=== PATIENT | male | born 1955 | race Caucasian/White ===

== ENCOUNTER → 2017-08-04 17:11 | Outpatient (CLI) | payer BC, SELFPAY ==
[2017-08-04 18:27] LABS: Alanine Aminotransferase 52 IU/L (21-72); Albumin 4.8 g/dL (3.5-5.0); Albumin Globulin Ratio 1.4 (1.0-2.8); Alkaline Phosphatase 61 U/L (38-126); Aspartate Aminotransferase 47 IU/L (17-59); BUN Creatinine Ratio 25.8 (6-22); Bilirubin Total 0.9 mg/dL (0.2-1.3); Calcium 9.6 mg/dL (8.4-10.2); Estimated Glomerular Filt Rate > 60.0 mL/min (>60); Globulin 3.4 g/dL (1.7-4.1); Glucose 96 mg/dL (80-110); HEMOLYSIS < 15 (0-50); Potassium 4.7 mmol/L (3.4-5.1); Sodium 142 mmol/L (137-145); Total Protein 8.2 g/dL (6.3-8.2)
[2017-08-04 18:32] LABS: Add Manual Diff / Slide Review NO; Basophils Percent Auto 1.1 % (0-2); Eosinophils Percent Auto 3.6 % (2-4); Hematocrit 46.9 % (41-53); Hemoglobin 16.2 g/dL (13.5-17.5); Lymphocytes Percent Auto 21.8 % (25-40); Mean Corpuscular HGB Conc 34.5 % (30-36); Mean Corpuscular Hemoglobin 31.5 PG (26-34); Mean Corpuscular Volume 91.2 fL (80-100); Monocytes Percent Auto 12.1 % (3-14); Neutrophils Absolute Auto 3500 /uL (3000-5900); Neutrophils Percent Auto 61.4 % (50-75); Platelet Count 184 X10^3/uL (150-400); Red Blood Cell Count 5.14 X10^6/uL (4.5-5.9); Red Cell Distribution Width 12.6 % (11.6-14.8); White Blood Cell Count 5.7 X10^3/uL (4.5-11.0)
== END ==
PROVIDERS: PCP Family Medicine; Visit Provider Psychiatry & Neurology Neurology
DX: T88.7XXA Unspecified adverse effect of drug or medicament, initial encounter (principal)
CPT/HCPCS: 36415; 80053; 85025

== ENCOUNTER → 2017-08-19 13:06 | Outpatient (CLI) | payer BC, SELFPAY | PROVIDERS: PCP Family Medicine; Visit Provider Urology | DX: R97.20 Elevated prostate specific antigen [PSA] (principal) | CPT/HCPCS: 36415; 84153 ==

== ENCOUNTER → 2017-10-25 14:48 | Outpatient (CLI) | payer BC, SELFPAY ==
[2017-10-25 15:50] LABS: Appearance Urine UA SL CLOUDY; Bilirubin Urine UA NEGATIVE (NEGATIVE); Color Urine UA YELLOW; Glucose Urine UA NEGATIVE (Normal); Ketones Urine UA TRACE (NEGATIVE); Leukocyte Esterase Urine UA 1+ (NEGATIVE); Nitrite Urine UA Negative (Negative); Occult Blood Urine UA 3+ (Negative); Protein Urine UA TRACE (Negative); Specific Gravity Urine UA 1.025 (1.000-1.035); Urobilinogen Urine UA 0.2 E.U./dL (0.2)
[2017-10-25 16:01] LABS: RBC Urine 5-10/HPF (0-5/HPF); Squamous Epithelial Cell Urine 1-5 /HPF; WBC Urine 10-30/HPF (0-5/HPF)
[2017-10-25 16:02] LABS: Bacteria Urine Occasional (0-1); Culture Indicated Urine Specimen Cultured
== END ==
PROVIDERS: Family Provider Family Medicine; PCP Family Medicine; Visit Provider Urology
DX: N40.1 Benign prostatic hyperplasia with lower urinary tract symptoms (principal)
CPT/HCPCS: 81001; 87086

== ENCOUNTER → 2017-11-08 16:19 | Outpatient (CLI) | payer BC, SELFPAY ==
[2017-11-08 18:40] LABS: Bilirubin Urine UA NEGATIVE (NEGATIVE); Color Urine UA YELLOW; Glucose Urine UA NEGATIVE (Normal); Ketones Urine UA NEGATIVE (NEGATIVE); Leukocyte Esterase Urine UA 1+ (NEGATIVE); Nitrite Urine UA Negative (Negative); Occult Blood Urine UA 3+ (Negative); Protein Urine UA NEGATIVE (Negative); Urobilinogen Urine UA 0.2 E.U./dL (0.2)
[2017-11-08 18:48] LABS: Appearance Urine UA Slightly Cloudy
[2017-11-08 18:49] LABS: RBC Urine 5-10/HPF (0-5/HPF)
[2017-11-08 18:51] LABS: Bacteria Urine Moderate (10-30); Squamous Epithelial Cell Urine 0-1 /HPF; WBC Urine 10-30/HPF (0-5/HPF)
[2017-11-08 18:52] LABS: Culture Indicated Urine Specimen Cultured
== END ==
PROVIDERS: Family Provider Family Medicine; PCP Family Medicine; Visit Provider Urology
DX: N39.0 Urinary tract infection, site not specified (principal)
CPT/HCPCS: 81001; 87086

== ENCOUNTER → 2017-11-15 16:20 | Outpatient (CLI) | payer BC, SELFPAY ==
[2017-11-15 16:53] LABS: Appearance Urine UA CLEAR; Bilirubin Urine UA NEGATIVE (NEGATIVE); Color Urine UA YELLOW; Glucose Urine UA NEGATIVE (Normal); Ketones Urine UA NEGATIVE (NEGATIVE); Leukocyte Esterase Urine UA 1+ (NEGATIVE); Nitrite Urine UA Negative (Negative); Occult Blood Urine UA 1+ (Negative); Protein Urine UA NEGATIVE (Negative); Urobilinogen Urine UA 0.2 E.U./dL (0.2)
[2017-11-15 17:04] LABS: RBC Urine 0-1/HPF (0-5/HPF); Squamous Epithelial Cell Urine 0-1 /HPF; WBC Urine 5-10/HPF (0-5/HPF)
[2017-11-15 17:05] LABS: Bacteria Urine Few (2-10); Culture Indicated Urine Specimen Cultured
[2017-11-15 17:32] LABS: BUN Creatinine Ratio 21.7 (6-22); Blood Urea Nitrogen 26 mg/dL (9-20); Estimated Glomerular Filt Rate > 60.0 mL/min (>60)
== END ==
PROVIDERS: Family Provider Family Medicine; PCP Family Medicine; Visit Provider Urology
DX: R31.0 Gross hematuria (principal)
CPT/HCPCS: 36415; 81001; 82565; 84520; 87077; 87086; 87186

== ENCOUNTER → 2017-11-21 07:08 | Outpatient (CLI) | payer BC, SELFPAY ==
--- NOTE | 2017-11-21 | DI.CT.S_ITS ---
PROCEDURE: CT ABDOMEN PELVIS WO/W CON INDICATIONS: GROSS HEMATURIA TECHNIQUE: Optional 5 mm thick noncontrast images acquired from the diaphragm to the symphysis pubis. After the administration of intravenous contrast, 5 mm thick images acquired from the diaphragm to the symphysis pubis after a 10-minute delay. 2 mm thick coronal and sagittal reformats were then performed of the kidneys and ureters. For radiation dose reduction, the following was used: automated exposure control, adjustment of mA and/or kV according to patient size. COMPARISON: [facility], MR, PELVIS W&WO CONTRAST, 07/29/2015, 7:44. FINDINGS: Image quality: Excellent. Lung bases: Lung bases are clear. Heart size is normal. Urinary system: No nephrolithiasis, hydronephrosis, or perinephric stranding. There is symmetric bilateral renal enhancement. There are a few left renal cysts including a large exophytic cyst measuring up to 9.1 cm in maximum dimension. Within the superior pole of the right kidney, there is also a small medial wedge-shaped cortical hypodensity. This may represent a small cyst versus sequelae of a small infarct or infection. Renal calyces appear normal in morphology when filled with contrast without discrete filling defects. Opacified portions of both ureters demonstrate normal caliber. No calcified bladder stones. Although the urinary bladder is incompletely distended, there is concentric bladder wall thickening with mild fat stranding likely representing cystitis. Prominent intraluminal gas is demonstrated within the urinary bladder. There is a probable curvilinear fistula tract demonstrated between the sigmoid colon and bladder dome best seen on coronal images centered at series 4 image 118. Other solid organs: Liver is normal in size and enhancement. Gallbladder appears within normal limits without calcified gallstones. Biliary system is non dilated. Pancreas enhances normally. Spleen is normal in size and enhancement. No adrenal nodules. Peritoneum and bowel: Small bowel loops demonstrate normal wall thickness and caliber. There is colonic diverticulosis without acute diverticulitis. As noted above, there is a probable fistula tract demonstrated between the sigmoid colon and urinary bladder likely related to sequela of prior diverticulitis. Mild segmental wall thickening is noted in the sigmoid colon suggestive of a mild colitis. No free fluid or air. Nodes and vessels: No retroperitoneal or mesenteric adenopathy by size criteria. Aorta and inferior vena cava are normal in size. Abdominal wall: No ventral hernias. Pelvis: No pathologic free pelvic fluid. The prostate is mildly enlarged. No inguinal hernias or adenopathy. Bones: No suspicious bony lesions. No vertebral body compression fractures. IMPRESSION: 1. 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 The findings likely represent sequelae of prior diverticulitis. 2. Diverticulosis without definite acute diverticulitis. Mild segmental wall thickening in the sigmoid colon is suggestive of a mild colitis. 3. No evidence of nephrolithiasis or discrete filling defects in the renal collecting systems. 4. Small hypodensity medially in the right kidney represents a small cyst versus sequela of prior infarct or infection. A message was left at Dr. Breen's office on 11/21/17 at 10:10 AM. Dictated by: Enmanuel Russo M.D. on 11/21/2017 at 9:52 Approved by: Enmanuel Russo M.D. on 11/21/2017 at 10:12
== END ==
PROVIDERS: Family Provider Family Medicine; PCP Family Medicine; Visit Provider Urology
DX: N30.91 Cystitis, unspecified with hematuria (principal); K57.90 Diverticulosis of intestine, part unspecified, without perforation or abscess without bleeding
CPT/HCPCS: 74178; Q9967

== ENCOUNTER → 2017-12-12 08:01 | Outpatient (CLI) | payer BC, SELFPAY ==
--- NOTE | 2017-12-12 | DI.CT.S_ITS ---
PROCEDURE: CT CHEST ABD PEL W CON INDICATIONS: LUNG NODULE TECHNIQUE: After the administration of oral and intravenous contrast, 5 mm thick sections acquired from the lung apices to the symphysis. 5 mm coronal and sagittal reformats were performed, with additional 7 mm coronal MIP reformats through the lungs. For radiation dose reduction, the following was used: automated exposure control, adjustment of mA and/or kV according to patient size. COMPARISON: [facility], CT, THORAX WITHOUT CONTRAST, 07/11/2015, 12:36. [facility], CR, XR CHEST 2 VIEWS, 12/01/2017, 8:21. [facility], CT, CT ABDOMEN PELVIS WO/W CON, 11/21/2017, 7:22. FINDINGS: Image quality: Excellent. CHEST: Lungs and pleura: There is a 1.3 x 1.2 cm nodular density with a mildly spiculated margin adjacent to anterior pleura of the right upper lobe series 3 image 24. No other pulmonary nodule or mass is seen. No pleural effusions or pneumothorax. Central and peripheral airways appear patent and normal in caliber. Mediastinum: Heart size is normal. No pericardial effusion. No mediastinal or hilar adenopathy by size criteria. Thoracic aorta and central pulmonary arteries are normal in size. Esophagus is normal in caliber. No hiatal hernia. Chest wall: No axillary or supraclavicular adenopathy by size criteria. Thyroid gland is within normal limits. ABDOMEN: Solid organs: Liver is normal in size and enhancement. Mild hepatic steatosis is seen. Gallbladder is within normal limits. Biliary system is non dilated. Pancreas enhances normally. Spleen is normal in size and enhancement. No adrenal nodules. Kidneys demonstrate normal size and enhancement, without hydronephrosis. No renal stone is seen. A large left renal cyst is again noted and unchanged. Additional smaller bilateral renal cysts are also seen. Peritoneum and bowel: Again noted is extensive descending and sigmoid colon diverticulosis with wall thickening and pericolonic fat stranding surrounding the proximal sigmoid colon. Possible fistula tract between the sigmoid colon and urinary bladder a left lower quadrant is again seen and unchanged. No free fluid or free air. Nodes and vessels: No retroperitoneal or mesenteric adenopathy by size criteria. Aorta and inferior vena cava are normal in size. Miscellaneous: No ventral hernias. PELVIS: Genitourinary: Asymmetric left-sided urinary bladder wall thickening is noted measures up to 1 cm in thickness. Mild pericystic fat stranding is also noted. Small amount of air is also noted within the nondependent portion of the gallbladder lumen. Miscellaneous: No inguinal hernias. Mildly enlarged bilateral inguinal lymph nodes are seen measuring up to 11 mm in short axis diameter. Bones: No suspicious bony lesions. No vertebral body compression fractures. IMPRESSION: 1. 13 x 12 mm soft tissue density nodule adjacent to anterior pleural of the right upper lobe with very mildly spiculated margin. This is a new finding since previous CT of chest dated 07/11/15. Given its size, consider PET CT study for further evaluation of this nodule. Alternatively, this can also be followed up with CT of chest in 3 months. 2. No other pulmonary nodule or mass is seen. Bilateral lungs are clear. 3. Multiple bilateral renal cysts. No hydronephrosis. 4. Asymmetric left-sided bladder wall thickening with intraluminal gas with adjacent proximal sigmoid diverticulosis. Reidentified fixation of possible fistula connection between the left side of urinary bladder wall and inferior medial aspect of sigmoid colon. No free fluid or free air. Dictated by: Alex Duval M.D. on 12/12/2017 at 10:10 Approved by: Alex Duval M.D. on 12/12/2017 at 11:06
[2017-12-12 09:04] LABS: Alanine Aminotransferase 36 IU/L (21-72); Albumin 4.4 g/dL (3.5-5.0); Albumin Globulin Ratio 1.2 (1.0-2.8); Alkaline Phosphatase 58 U/L (38-126); Aspartate Aminotransferase 39 IU/L (17-59); BUN Creatinine Ratio 15.3 (6-22); Bilirubin Total 0.9 mg/dL (0.2-1.3); Blood Urea Nitrogen 23 mg/dL (9-20); Calcium 9.3 mg/dL (8.4-10.2); Carbon Dioxide 29 mmol/L (22-32); Chloride 102 mmol/L (98-107); Estimated Glomerular Filt Rate 47.1 mL/min (>60); Globulin 3.6 g/dL (1.7-4.1); Glucose 102 mg/dL (80-110); HEMOLYSIS < 15 (0-50); Potassium 4.6 mmol/L (3.4-5.1); Sodium 142 mmol/L (137-145)
== END ==
PROVIDERS: Family Provider Family Medicine; PCP Family Medicine; Visit Provider Family Medicine
DX: R91.8 Other nonspecific abnormal finding of lung field (principal); N28.1 Cyst of kidney, acquired; K57.30 Diverticulosis of large intestine without perforation or abscess without bleeding
CPT/HCPCS: 36415; 71260; 74177; 80053; Q9967

== ENCOUNTER → 2018-01-19 17:09 | Outpatient (CLI) | payer BC, SELFPAY ==
[2018-01-19 17:22] LABS: Add Manual Diff / Slide Review NO; Basophils Percent Auto 0.7 % (0-2); Eosinophils Percent Auto 2.2 % (2-4); Hematocrit 41.6 % (41-53); Lymphocytes Percent Auto 15.2 % (25-40); Mean Corpuscular HGB Conc 33.6 % (30-36); Mean Corpuscular Hemoglobin 30.3 PG (26-34); Mean Corpuscular Volume 90.2 fL (80-100); Monocytes Percent Auto 10.9 % (3-14); Neutrophils Absolute Auto 5000 /uL (3000-5900); Platelet Count 225 X10^3/uL (150-400); Red Blood Cell Count 4.61 X10^6/uL (4.5-5.9); Red Cell Distribution Width 13.7 % (11.6-14.8); White Blood Cell Count 7.1 X10^3/uL (4.5-11.0)
[2018-01-19 17:41] LABS: INR 1.2 (0.9-1.3); Prothrombin Time 13.4 SECONDS (10.1-12.7)
== END ==
PROVIDERS: Family Provider Family Medicine; PCP Family Medicine; Visit Provider Internal Medicine Critical Care Medicine
DX: R91.1 Solitary pulmonary nodule (principal)
CPT/HCPCS: 36415; 85025; 85610

== ENCOUNTER → 2018-02-09 17:00 | Outpatient (CLI) | payer BC, SELFPAY | PROVIDERS: Family Provider Family Medicine; PCP Family Medicine; Visit Provider Urology | DX: R97.20 Elevated prostate specific antigen [PSA] (principal) | CPT/HCPCS: 36415; 84153 ==

== ENCOUNTER → 2018-05-18 16:32 | Outpatient (CLI) | payer BC, SELFPAY | PROVIDERS: Family Provider Family Medicine; PCP Family Medicine; Visit Provider Internal Medicine Critical Care Medicine | DX: R91.8 Other nonspecific abnormal finding of lung field (principal) | CPT/HCPCS: 86635; 86698; 87899 ==

== ENCOUNTER → 2018-06-06 09:22 | Outpatient (CLI) | payer BC, SELFPAY ==
--- NOTE | 2018-06-06 | DI.ECHO.S_ITS ---
[facility]---------+ [facility] +---------+ : : [address] : [address] : : : : [id number] : : : : Phone: [phone] Echocardiogram Report + + :Name: DUSTY RIVERA Study Date: 06/06/2018 Height: 74 in : :[facility] Exam Location: IS Weight: 246 lb : : Gender: Male BSA: 2.4 m2 : :: 1955 Age: 63 yrs BP: 122/68 mmHg: :Reason For Study: DYSPNEA : : Performed By: Maxx Damon : :Referring: LEONARDO DIXON : + + Interpretation Summary The left ventricle is normal in size. The ejection fraction is estimated to be 60-65%. There are no focal wall motion abnormalities. Diastolic parameters suggest probable normal left ventricular diastolic function and normal filling pressures. The right ventricle is borderline dilated. The right ventricular systolic function is normal. The right ventricular systolic pressure is estimated to be at least 23 mmHg based on an estimated right atrial pressure of 3 mm Hg. The left atrium is mildly dilated. Right atrial size is normal. There is no significant valvular heart disease. The ascending aorta is mildly enlarged. Procedure: A two-dimensional transthoracic echocardiogram with color flow and Doppler was performed. The study quality was technically good. There is no prior echocardiogram noted for this patient. The patient was in normal sinus rhythm during the exam. Left Ventricle: The left ventricle is normal in size. There is normal left ventricular wall thickness. The ejection fraction is estimated to be 60-65%. There are no focal wall motion abnormalities. Diastolic parameters suggest probable normal left ventricular diastolic function and normal filling pressures. Right Ventricle: The right ventricle is borderline dilated. The right ventricular systolic function is normal. Atria: The left atrium is mildly dilated. Right atrial size is normal. The interatrial septum is intact with no evidence for an atrial septal defect. Mitral Valve: The mitral valve is normal in structure and function. There is trace mitral regurgitation. Aortic Valve: The aortic valve is trileaflet. The aortic valve opens well. No aortic regurgitation is present. Tricuspid Valve: The tricuspid valve is normal in structure and function. There is trace tricuspid regurgitation. The right ventricular systolic pressure is estimated to be at least 23 mmHg based on an estimated right atrial pressure of 3 mm Hg. Pulmonic Valve: The pulmonic valve is normal in structure and function. There is trace pulmonic regurgitation. There is no significant valvular heart disease. Great Vessels: The aortic root is normal size. The ascending aorta is mildly enlarged. The pulmonary artery is normal size. The IVC is of normal diameter and collapses greater than 50% with a sniff. This suggests a low right atrial pressure of 3 mm Hg. Pericardium/ Pleura There is no pericardial effusion. There is no pleural effusion. MMode/2D Measurements & Calculations LVIDd: 4.8 cm LVOT diam: 2.2 cm LVIDs: 3.2 cm Ao root diam: 4.2 cm FS: 33.6 % Aortic Jxn: 3.4 cm EPSS: 0.87 cm asc Aorta Diam: 3.9 cm IVSd: 1.1 cm LVPWd: 0.98 cm LV rios. diameter/BSA (cm/m^2): 2.0 LV sys. diameter/BSA (cm/m^2): 1.3 LA dimension: 3.7 cm RA long axis: 5.2 cm LA A2 area: 23.4 cm2 RA area: 18.1 cm2 LA A4 area: 24.3 cm2 RA vol: 53.8 ml LA length (vol): 5.7 cm RA : 22.7 ml/m2 LA vol: 85.3 ml IVC diam: 1.2 cm LA vol index: 36.0 ml/m2 RVD1 (basal): 4.5 cm RVD2 (mid): 4.7 cm Doppler Measurements & Calculations Ao V2 max: 126.7 cm/sec LVOT Max Renaldo: 100.5 cm/sec Ao V2 mean: 87.3 cm/sec LV V1 max P.0 mmHg Ao max P.4 mmHg LV V1 VTI: 22.7 cm Ao mean P.4 mmHg SIMON(I,D): 3.4 cm2 Ao V2 VTI: 25.7 cm SIMON(V,D): 3.1 cm2 sev ratio: 0.89 SIMON indexed to BSA (cm^2/m^2): 1.4 MV E max renaldo: 45.5 cm/sec TR max renaldo: 221.8 cm/sec MV A max renaldo: 47.6 cm/sec TR max P.7 mmHg MV E/A: 0.96 PA V2 max: 81.7 cm/sec Med Peak E' Renlado: 5.9 cm/sec PA V2 mean: 60.0 cm/sec E/E' med: 7.7 PA mean P.6 mmHg Lat Peak E' Renaldo: 8.5 cm/sec PA pr(Accel): 26.6 mmHg E/E' lat: 5.4 PA Accel Time: 0.09 sec E/e' average: 6.6 MV dec time: 0.26 sec SV(LVOT): 87.6 ml Reading Physician:02:12 PM
== END ==
PROVIDERS: Family Provider Family Medicine; PCP Family Medicine; Visit Provider Internal Medicine Critical Care Medicine
DX: R06.09 Other forms of dyspnea (principal); I77.89 Other specified disorders of arteries and arterioles
CPT/HCPCS: 93306

== ENCOUNTER → 2018-06-27 16:26 | Outpatient (CLI) | payer BC, SELFPAY | PROVIDERS: Family Provider Family Medicine; PCP Family Medicine; Visit Provider Specialist | DX: N40.1 Benign prostatic hyperplasia with lower urinary tract symptoms (principal) | CPT/HCPCS: 36415; 84153 ==

== ENCOUNTER → 2018-07-28 11:49 | Outpatient (CLI) | payer BC, SELFPAY ==
--- NOTE | 2018-07-28 | DI.CT.S_ITS ---
PROCEDURE: CT PELVIS W CON INDICATIONS: ENLARGED PROSTATE TECHNIQUE: After the administration of oral contrast and intravenous contrast, 5 mm thick sections acquired from the iliac crests to the symphysis. 5 mm thick coronal and sagittal reformats were acquired. For radiation dose reduction, the following was used: automated exposure control, adjustment of mA and/or kV according to patient size. COMPARISON: [facility], CT, CT CHEST ABD PEL W CON, 12/12/2017, 9:37. FINDINGS: Image quality: Excellent. Peritoneum and bowel: Contrast enhanced bowel loops demonstrate normal wall thickness and caliber. No free fluid or air. There is suggestion of partial sigmoid resection with intact surgical anastomosis. Mild sigmoid diverticulosis is seen, no CT evidence of acute diverticulitis. Genitourinary: Bladder wall thickness is normal. Enlarged prostate gland is again seen and measures 5.4 x 4.8 x 3.9 cm in its largest transverse, AP and craniocaudal dimensions with mild mass effect of floor of urinary bladder. This is not significantly changed from 2018 study. Nodes and vessels: No iliac, or pelvic adenopathy. Prominent inguinal lymph nodes are seen measures up to 1.1 cm in short axis diameter and bilateral inguinal region. Iliac vessels demonstrate normal size and enhancement. Bones: No suspicious bony lesions. Osteophytic changes throughout bony pelvis is seen. Degenerative disc disease in visualized lower lumbar spine is noted. Miscellaneous: No inguinal hernias. IMPRESSION: 1. Mildly enlarged prostate gland with mild mass effect of floor of urinary bladder unchanged from previous study. No bladder wall abnormality. 2. Interval partial sigmoidectomy. Intact surgical anastomosis. No bowel obstruction. No free fluid or free air. 3. Nonspecific mildly enlarged bilateral inguinal lymph nodes measures up to 11 mm in short axis diameter. Dictated by: Alex Duval M.D. on 07/28/2018 at 16:27 Approved by: Alex Duval M.D. on 07/28/2018 at 16:35
[2018-07-28 12:57] LABS: Alanine Aminotransferase 44 IU/L (21-72); Albumin 4.8 g/dL (3.5-5.0); Albumin Globulin Ratio 1.4 (1.0-2.8); Alkaline Phosphatase 58 U/L (38-126); Aspartate Aminotransferase 46 IU/L (17-59); BUN Creatinine Ratio 23.3 (6-22); Blood Urea Nitrogen 28 mg/dL (9-20); Calcium 9.6 mg/dL (8.4-10.2); Carbon Dioxide 30 mmol/L (22-32); Chloride 99 mmol/L (98-107); Estimated Glomerular Filt Rate > 60.0 mL/min (>60); Globulin 3.4 g/dL (1.7-4.1); Glucose 99 mg/dL (80-110); HEMOLYSIS < 15 (0-50); Potassium 4.9 mmol/L (3.4-5.1); Sodium 137 mmol/L (137-145); Total Protein 8.2 g/dL (6.3-8.2)
== END ==
PROVIDERS: Family Provider Family Medicine; PCP Family Medicine; Visit Provider Specialist
DX: N40.0 Benign prostatic hyperplasia without lower urinary tract symptoms (principal); R59.0 Localized enlarged lymph nodes; K57.30 Diverticulosis of large intestine without perforation or abscess without bleeding; R91.8 Other nonspecific abnormal finding of lung field; G35 Multiple sclerosis
CPT/HCPCS: 36415; 72193; 80053; Q9967

== ENCOUNTER → 2018-08-04 08:02 | Outpatient (CLI) | payer BC, SELFPAY ==
[2018-08-04 09:24] LABS: Add Manual Diff / Slide Review NO; Basophils Absolute Auto 100 /uL (0-100); Basophils Percent Auto 1.3 % (0-2); Eosinophils Absolute Auto 100 /uL (0-450); Eosinophils Percent Auto 2.6 % (2-4); Hematocrit 46.6 % (41-53); Hemoglobin 15.8 g/dL (13.5-17.5); Lymphocytes Absolute Auto 700 /uL (1100-4500); Lymphocytes Percent Auto 17.3 % (25-40); Mean Corpuscular HGB Conc 33.8 % (30-36); Mean Corpuscular Hemoglobin 31.1 PG (26-34); Mean Corpuscular Volume 92.1 fL (80-100); Monocytes Absolute Auto 500 /uL (0-900); Monocytes Percent Auto 11.3 % (3-14); Neutrophils Absolute Auto 2800 /uL (1500-7000); Neutrophils Percent Auto 67.5 % (50-75); Platelet Count 190 X10^3/uL (150-400); Red Blood Cell Count 5.06 X10^6/uL (4.5-5.9); White Blood Cell Count 4.2 X10^3/uL (4.5-11.0)
[2018-08-04 09:47] LABS: Alanine Aminotransferase 41 IU/L (21-72); Albumin 4.6 g/dL (3.5-5.0); Albumin Globulin Ratio 1.4 (1.0-2.8); Alkaline Phosphatase 58 U/L (38-126); Aspartate Aminotransferase 43 IU/L (17-59); BUN Creatinine Ratio 18.5 (6-22); Bilirubin Total 0.8 mg/dL (0.2-1.3); Blood Urea Nitrogen 24 mg/dL (9-20); Calcium 9.7 mg/dL (8.4-10.2); Carbon Dioxide 32 mmol/L (22-32); Chloride 100 mmol/L (98-107); Cholesterol 260 mg/dL (140-199); Creatine Kinase 259 U/L (55-170); Estimated Glomerular Filt Rate 55.4 mL/min (>60); Globulin 3.3 g/dL (1.7-4.1); Glucose 104 mg/dL (80-110); HDL Cholesterol 44 mg/dL (40-60); HEMOLYSIS < 15 (0-50); LDL Cholesterol Calculated 194 mg/dL (<100); Potassium 4.6 mmol/L (3.4-5.1); Sodium 139 mmol/L (137-145); Total Protein 7.9 g/dL (6.3-8.2); Triglycerides 111 mg/dL (35-150)
[2018-08-06 16:01] LABS: Aldolase 7.3 U/L (< 8.2)
[2018-08-07 13:21] LABS: 1 25 Dihydroxy Vitamin D 44 pg/mL (18-72)
== END ==
PROVIDERS: PCP Family Medicine; Visit Provider Psychiatry & Neurology Neurology
DX: Z51.81 Encounter for therapeutic drug level monitoring (principal); R25.2 Cramp and spasm; E55.9 Vitamin D deficiency, unspecified; E78.5 Hyperlipidemia, unspecified
CPT/HCPCS: 36415; 80053; 80061; 82085; 82550; 82652; 85025; 86711

== ENCOUNTER → 2018-08-17 16:41 | Outpatient (CLI) | payer BC, SELFPAY ==
[2018-08-17 17:26] LABS: BUN Creatinine Ratio 21.5 (6-22); Blood Urea Nitrogen 28 mg/dL (9-20); Calcium 9.9 mg/dL (8.4-10.2); Carbon Dioxide 32 mmol/L (22-32); Chloride 98 mmol/L (98-107); Estimated Glomerular Filt Rate 55.4 mL/min (>60); Glucose 103 mg/dL (80-110); HEMOLYSIS < 15 (0-50); Potassium 4.9 mmol/L (3.4-5.1); Sodium 138 mmol/L (137-145)
[2018-08-17 17:56] LABS: Prostate Specific Antigen 34.9 ng/mL (0.10-4.00)
== END ==
PROVIDERS: Family Provider Family Medicine; PCP Family Medicine; Visit Provider Specialist
DX: R97.20 Elevated prostate specific antigen [PSA] (principal); N40.1 Benign prostatic hyperplasia with lower urinary tract symptoms
CPT/HCPCS: 36415; 80048; 84153

== ENCOUNTER → 2018-08-21 17:14 | Outpatient (CLI) | payer BC, SELFPAY ==
--- NOTE | 2018-08-21 | DI.MRI.S_ITS ---
PROCEDURE: MR PELIS WO/W CON INDICATIONS: prostate cancer TECHNIQUE: Coronal HASTE, axial T1 FSE with fat saturation, 3-plane nonbreath-hold T2 FSE. After the administration of contrast, dynamic axial, delayed axial and coronal VIBE or 2-D FLASH with fat saturation through the pelvis. Optional diffusion weighted imaging and ADC may be performed. COMPARISON: [facility], CT, CT CHEST ABD PEL W CON, 12/12/2017, 9:37. [facility], CT, CT PELVIS W CON, 07/28/2018, 13:17. [facility], MR, PELVIS W&WO CONTRAST, 07/29/2015, 7:44. FINDINGS: Image quality: Diffusion weighted images are limited. There is mild motion artifact limiting evaluation. Prostate: Gland size is 4.6 x 4.2 x 3.9 cm; ellipsoid gland volume is 39 mL. There is heterogeneous enlargement of the prostate primarily involving the transition zone compatible with BPH. No discrete suspicious mass lesion is identified on T2 weighted images. There is dynamic enhancement within the transition and central zones of the prostate with scattered foci of nodular enhancement which are nonspecific. No extraprostatic mass extension identified. Diffusion weighted images are suboptimal limiting evaluation. No definite foci of restricted diffusion or foci of hypointensity on the ADC map demonstrated within the prostate. Genitourinary system: Bladder wall thickness is normal. Distal ureters are non distended. Bowel and peritoneum: No pathologic free pelvic fluid. Inferior colon and small bowel loops are normal in caliber. Nodes and vessels: No pelvic or inguinal adenopathy by size criteria. Iliac vessels are normal in caliber. Soft tissues: No inguinal hernias. Bones: Marrow demonstrates normal overall signal, without suspicious lesions to suggest metastases. IMPRESSION: 1. Enlarged heterogeneous prostate compatible with BPH. No discrete suspicious prostatic mass lesion identified on the current study. Clinical correlation and followup are recommended. 2. No evidence of extraprostatic mass extension. 3. No evidence of pelvic lymphadenopathy or bony metastases within the visualized pelvis. Dictated by: Enmanuel Russo M.D. on 08/22/2018 at 11:36 Approved by: Enmanuel Russo M.D. on 08/22/2018 at 11:51
== END ==
PROVIDERS: Family Provider Family Medicine; PCP Family Medicine; Visit Provider Specialist
DX: N40.0 Benign prostatic hyperplasia without lower urinary tract symptoms (principal)
CPT/HCPCS: 72197; A9579

== ENCOUNTER → 2018-09-18 09:31 | Outpatient (CLI) | payer BC, SELFPAY ==
--- NOTE | 2018-09-18 | DI.NM.S_ITS ---
PROCEDURE: NM BONE SCAN WHOLE BODY RADIOPHARMACEUTICAL: 17.5 mCi Tc-99m MDP IV. INDICATIONS: ELEVATED PSA TECHNIQUE: Delayed whole-body scintigrams were obtained approximately 3-4 hours after intravenous injection of radiotracer. Anterior and posterior views were acquired from vertex to feet. Additional left and right oblique views of the pelvis were obtained. COMPARISON: [facility], CR, XR KNEE ARTHRITIC SERIES LT, 03/17/2017, 8:29. [facility], CT, CT CHEST WITHOUT CONTRAST, 05/11/2018, 17:13. [facility], MR, MR PELVIS WO/W CON, 08/21/2018, 17:26. FINDINGS: Throughout the axial and appendicular skeleton with no area of abnormal isotope deposition is seen that would indicate likelihood of underlying osseous metastatic disease related to prostate carcinoma. Note is made of symmetric a.c. joint osteoarthritic isotope uptake, and at the knee joint regions there is left greater than right medial tibial plateau isotope deposition in a pattern more likely to represent evidence of asymmetric degenerative osteoarthritic change on the left than an unusual manifestation of metastatic disease. Patellofemoral joint osteoarthritis also is present greater on the right than the left. IMPRESSION: No osseous metastatic disease found. Asymmetric left greater than right medial compartment knee joint osteoarthritis appears present and also asymmetric right greater than left patellofemoral joint degenerative osteoarthritis appears present. If clinically desired followup dedicated bilateral knee plain film imaging could be obtained to confirm degenerative changes as the underlying cause. Dictated by: Jet Fu M.D. on 09/18/2018 at 14:37 Approved by: Jet Fu M.D. on 09/18/2018 at 14:42
== END ==
PROVIDERS: PCP Family Medicine; Visit Provider Specialist
DX: R97.20 Elevated prostate specific antigen [PSA] (principal); M17.0 Bilateral primary osteoarthritis of knee
CPT/HCPCS: 78306; A9503

== ENCOUNTER → 2018-10-19 16:33 | Outpatient (CLI) | payer BC, SELFPAY ==
[2018-10-19 17:13] LABS: Hematocrit 47.6 % (41-53); Hemoglobin 15.9 g/dL (13.5-17.5); Mean Corpuscular HGB Conc 33.3 % (30-36); Mean Corpuscular Hemoglobin 30.6 PG (26-34); Platelet Count 206 X10^3/uL (150-400); Red Blood Cell Count 5.17 X10^6/uL (4.5-5.9); Red Cell Distribution Width 13.1 % (11.6-14.8); White Blood Cell Count 9.2 X10^3/uL (4.5-11.0)
[2018-10-19 17:22] LABS: BUN Creatinine Ratio 24.6 (6-22); Blood Urea Nitrogen 32 mg/dL (9-20); Calcium 9.9 mg/dL (8.4-10.2); Carbon Dioxide 28 mmol/L (22-32); Chloride 99 mmol/L (98-107); Estimated Glomerular Filt Rate 55.4 mL/min (>60); Glucose 101 mg/dL (80-110); HEMOLYSIS < 15 (0-50); Potassium 4.3 mmol/L (3.4-5.1); Sodium 139 mmol/L (137-145)
[2018-10-19 18:26] LABS: Creatinine Urine Random 55.7 mg/dL; Protein (Total) Urine Random 10 mg/dL (0-12); Protein Creatinine Ratio Urine 0.17 GRAM/24H
== END ==
PROVIDERS: PCP Family Medicine; Visit Provider Student in an Organized Health Care Education/Training Program
DX: N05.9 Unspecified nephritic syndrome with unspecified morphologic changes (principal); D70.9 Neutropenia, unspecified; D63.1 Anemia in chronic kidney disease; R80.9 Proteinuria, unspecified
CPT/HCPCS: 36415; 80048; 82570; 84156; 85027

== ENCOUNTER → 2018-11-07 07:40 | Outpatient (CLI) | payer BC, SELFPAY ==
--- NOTE | 2018-11-07 | DI.US.S_ITS ---
PROCEDURE: US RENAL COMPLETE INDICATIONS: Chronic kidney disease, stage 3 (moderate) TECHNIQUE: Real-time scanning was performed of the kidneys and bladder, with image documentation. COMPARISON: [facility], CT, CT PELVIS W CON, 07/28/2018, 13:17. FINDINGS: Kidneys: Kidneys are normal in size. Right kidney measures 11.3 cm long; left kidney measures 13.2 cm long. Right renal cortical thickness is 1.6 cm; left renal cortical thickness is 1.5 cm. Renal cortical echotexture is normal. No hydronephrosis or nephrolithiasis. No suspicious solid mass lesions. There is a large cyst seen at the superior aspect of the left kidney measures 10.2 x 9.8 x 7.4 cm. There is a 5 mm cyst seen along the right kidney cortex Bladder: Pre-void bladder volume is 236 mL. Post-void residual is 16 mL (after the 2nd void). Pre-void images demonstrate no intraluminal masses or stones. The urinary bladder wall demonstrates a coarse appearance. On pre-void images, as both ureteral jets are noted with color Doppler interrogation. (Of note, ureteral jets may not be detectable in up to 25% of cases due to insufficient differences in specific gravity between ureteral and bladder urine). Miscellaneous: No free pelvic fluid. A prominent prostate is seen, with a volume of 77 cc. IMPRESSION: Coarse appearance of the urinary bladder, without a mass identified. A 10.2 cm cyst seen at the superior pole the left kidney. Mild postvoid residual (16 cc). Dictated by: Peter Arrington M.D. on 11/07/2018 at 9:40 Approved by: Peter Arrington M.D. on 11/07/2018 at 9:47
== END ==
PROVIDERS: PCP Family Medicine; Visit Provider Student in an Organized Health Care Education/Training Program
DX: N18.3 Chronic kidney disease, stage 3 (moderate) (principal); N28.1 Cyst of kidney, acquired
CPT/HCPCS: 76770

== ENCOUNTER → 2018-11-16 14:39 | Outpatient (CLI) | payer BC, SELFPAY ==
--- NOTE | 2018-11-16 | DI.CT.S_ITS ---
PROCEDURE: CT CHEST WO CON INDICATIONS: NODULE OF UPPER LOBE OF RIGHT LUNG TECHNIQUE: Noncontrast 5 mm thick sections acquired from the pulmonary apices to the posterior costophrenic angles. 1 mm lung window, 5 mm thick coronal and sagittal and 7 mm axial MIP reformats were then acquired. For radiation dose reduction, the following was used: automated exposure control, adjustment of mA and/or kV according to patient size. COMPARISON: [facility], CT, THORAX WITHOUT CONTRAST, 07/11/2015, 12:36. [facility], CT, CT CHEST ABD PEL W CON, 12/12/2017, 9:37. [facility], CT, CT CHEST WITHOUT CONTRAST, 05/11/2018, 17:13. FINDINGS: Image quality: Excellent. Lungs and pleura: There is a 1.2 cm noncalcified nodule in the anterior segment of the right upper lobe, unchanged in size since 12/12/2017. This nodule was not present on the earlier CT dated 07/11/2015. No acute air space opacities. No pleural effusions or pneumothorax. Central and peripheral airways are patent and normal in caliber. Mediastinum: Heart size is normal. No pericardial effusion. No mediastinal adenopathy by size criteria. Thoracic aorta and central pulmonary arteries are normal in size. Esophagus is normal in caliber. No hiatal hernia. Bones and chest wall: No suspicious bony lesions. No vertebral body compression fractures. No axillary or supraclavicular adenopathy by size criteria. Thyroid gland is normal. Abdomen: There is a 9.6 cm simple appearing cyst in the superior pole of the left kidney. IMPRESSION: 1. Stable 1.2 cm nodule in the right upper lobe since 12/12/2017. Continued CT surveillance is recommended (please see followup recommendation). 2. A large simple cyst in the left kidney. Fleischner Society criteria for SOLID lung nodule followup. Nodule size (mm)Low-risk patientHigh-risk patient?4No follow-up neededFollow-up at 12 mo; if no change, no further follow-up>1-5Tpwwit-ap CT at 12 mo; if no change, no further follow-up needed.Initial follow-up CT at 6-12 mo, then 18-24 mo if no change. >6-8Initial follow-up CT at 6-12 mo, then 18-24 mo if no change. Initial follow-up CT at 3-6 mo, then 9-12 mo and 24 mo if no change. >8Follow-up CT at 3, 9, 24 mo. Or PET and/or biopsy.Same as for low-risk pts. Fleischner Society criteria for SUB-SOLID lung nodule followup. Solitary pure ground-glass nodules5 mm or lessNo followup needed. >5 mm3 mo follow-up CT to confirm persistence. Then annual CT for 3 years. Part-solid nodules3 mo follow-up CT to confirm persistence. If persistent with solid component <5 mm, annual CT for at least 3 years. If solid component is 5 mm or more, biopsy or surgical resection. Consider PET-CT for lesions > 10 mm. Multiple sub-solid nodulesPure ground glass nodules [address] at 2 and 4 years. Pure ground glass nodules >5 mm without dominant lesion. [address] to confirm persistence, then annual followup CT for at least 3 years. Dominant nodule(s) with part-solid or solid component. [address] to confirm persistence. If persistent, consider biopsy or surgical resection, joe if lesions have >5 mm solid component. Dictated by: Ludmila Mercado M.D. on 11/16/2018 at 15:02 Approved by: Ludmila Mercado M.D. on 11/16/2018 at 17:50
== END ==
PROVIDERS: Family Provider Family Medicine; PCP Family Medicine; Visit Provider Internal Medicine Critical Care Medicine
DX: R91.1 Solitary pulmonary nodule (principal); N28.1 Cyst of kidney, acquired
CPT/HCPCS: 71250

== ENCOUNTER → 2018-12-19 16:21 | Outpatient (CLI) | payer BC, SELFPAY ==
[2018-12-19 16:33] LABS: Bacteria Urine None Seen; RBC Urine None Seen (0-5/HPF)
[2018-12-19 17:02] LABS: Appearance Urine UA CLEAR; Bilirubin Urine UA NEGATIVE (NEGATIVE); Color Urine UA YELLOW; Glucose Urine UA NEGATIVE (Negative); Ketones Urine UA NEGATIVE (NEGATIVE); Leukocyte Esterase Urine UA NEGATIVE (NEGATIVE); Nitrite Urine UA NEGATIVE (Negative); Occult Blood Urine UA NEGATIVE (Negative); Protein Urine UA NEGATIVE (Negative); Urobilinogen Urine UA 0.2 E.U./dL (0.2)
[2018-12-19 17:05] LABS: Hematocrit 45.9 % (41-53); Hemoglobin 15.7 g/dL (13.5-17.5)
[2018-12-19 18:09] LABS: Creatinine Urine Random 96.2 mg/dL; Protein (Total) Urine Random 7 mg/dL (0-12); Protein Creatinine Ratio Urine 0.07 GRAM/24H
[2018-12-19 18:10] LABS: BUN Creatinine Ratio 19.2 (6-22); Blood Urea Nitrogen 25 mg/dL (9-20); Calcium 9.9 mg/dL (8.4-10.2); Carbon Dioxide 30 mmol/L (22-32); Chloride 98 mmol/L (98-107); Estimated Glomerular Filt Rate 55.4 mL/min (>60); Glucose 88 mg/dL (80-110); HEMOLYSIS < 15 (0-50); Phosphorous 3.8 mg/dL (2.3-3.7); Potassium 4.3 mmol/L (3.4-5.1); Sodium 138 mmol/L (137-145); Urine Comments Microscopic Normal; WBC Urine 0-1/HPF (0-5/HPF)
[2018-12-23 11:56] LABS: Parathyroid Hormone Int 36 pg/mL (14-64)
== END ==
PROVIDERS: Family Provider Family Medicine; PCP Family Medicine; Visit Provider Student in an Organized Health Care Education/Training Program
DX: N05.9 Unspecified nephritic syndrome with unspecified morphologic changes (principal); D64.9 Anemia, unspecified; E83.30 Disorder of phosphorus metabolism, unspecified; N25.81 Secondary hyperparathyroidism of renal origin; N30.00 Acute cystitis without hematuria; R80.9 Proteinuria, unspecified
CPT/HCPCS: 36415; 80048; 81001; 82570; 83970; 84100; 84156; 85014; 85018; 87077; 87086

== ENCOUNTER → 2018-12-23 09:16 | Outpatient (CLI) | payer BC, SELFPAY ==
[2018-12-23 09:23] LABS: Bacteria Urine None Seen; RBC Urine None Seen (0-5/HPF); WBC Urine None Seen (0-5/HPF)
[2018-12-23 09:36] LABS: Appearance Urine UA CLEAR; Bilirubin Urine UA NEGATIVE (NEGATIVE); Color Urine UA YELLOW; Glucose Urine UA NEGATIVE (Negative); Ketones Urine UA NEGATIVE (NEGATIVE); Leukocyte Esterase Urine UA NEGATIVE (NEGATIVE); Nitrite Urine UA NEGATIVE (Negative); Occult Blood Urine UA NEGATIVE (Negative); Protein Urine UA NEGATIVE (Negative); Specific Gravity Urine UA 1.015 (1.000-1.035); Urobilinogen Urine UA 0.2 E.U./dL (0.2)
[2018-12-23 09:41] LABS: Culture Indicated Urine Cult Not Indicated; Urine Comments Microscopic Normal
== END ==
PROVIDERS: Family Provider Family Medicine; PCP Family Medicine; Visit Provider Student in an Organized Health Care Education/Training Program
DX: N30.00 Acute cystitis without hematuria (principal)
CPT/HCPCS: 81001

== ENCOUNTER → 2019-03-20 16:20 | Outpatient (CLI) | payer BC, SELFPAY ==
[2019-03-20 19:02] LABS: Prostate Specific Antigen 36.8 ng/mL (0.10-4.00)
== END ==
PROVIDERS: Family Provider Family Medicine; PCP Family Medicine; Visit Provider Specialist
DX: N40.1 Benign prostatic hyperplasia with lower urinary tract symptoms (principal)
CPT/HCPCS: 36415; 84153

== ENCOUNTER → 2019-05-02 08:26 | Outpatient (CLI) | payer BC, SELFPAY ==
--- NOTE | 2019-05-02 08:29 | DI.MRI.S_ITS ---
PROCEDURE: MR PELIS WO/W CON INDICATIONS: Elevated prostate specific antigen [PSA] TECHNIQUE: Noncontrast coronal T1 spin echo and STIR, sagittal T1 spin echo with fat saturation and STIR, axial T1 spin echo and T2 fast spin echo with fat saturation. After the administration of contrast, axial/sagittal/coronal T1 spin echo with fat saturation through the pelvis optimize for prostate visualization, to include dynamic phases of contrast enhancement. Diffusion imaging pulse sequences also were obtained with ADC mapping. Quality of this particular pulse sequence is relatively low and anatomic detail. COMPARISON: [facility], MR, MR PELVIS WO/W CON, 08/21/2018, 17:26. [facility], MR, PELVIS W&WO CONTRAST, 07/29/2015, 7:44. [facility], CT, CT CHEST WO CON, 11/16/2018, 14:42. [facility], NM, NM BONE SCAN WHOLE BODY, 09/18/2018, 13:03. FINDINGS: Image quality: Excellent. Bones: The visualized bone marrow demonstrates normal signal on all sequences. The overlying cortex appears intact. No abnormal intraosseous enhancement. Soft tissues: No soft tissue masses are visualized. The scanned muscles demonstrate normal overall bulk and internal signal. Subcutaneous tissues appear normal as well. No abnormal soft tissue enhancement. Prostate: The prostate dimensions have not significantly changed, and utilizing the prolate ellipse volume estimation the current prostate volume is 51.3 cc. Heterogeneity of the transitional zone is again noted consistent with BPH. No discrete solid mass is identified. The prostatic capsule appears intact. Dynamic contrast enhancement and diffusion imaging shows no area of suspicious mass or adjacent adenopathy. IMPRESSION: Stable benign prostatic hypertrophy appearance, no malignant appearing mass lesion has developed. Marrow space is normal, no adenopathy is found. Dictated by: Jet Fu M.D. on 05/03/2019 at 15:58 Approved by: Jet Fu M.D. on 05/03/2019 at 16:03
== END ==
PROVIDERS: Family Provider Family Medicine; PCP Family Medicine; Referring Provider Specialist; Visit Provider Specialist
DX: R97.20 Elevated prostate specific antigen [PSA] (principal); N40.0 Benign prostatic hyperplasia without lower urinary tract symptoms
CPT/HCPCS: 72197; A9579

== ENCOUNTER → 2019-09-12 16:16 | Outpatient (CLI) | payer BC, SELFPAY ==
[2019-09-12 17:31] LABS: Hematocrit 45.6 % (41-53); Hemoglobin 15.9 g/dL (13.5-17.5)
[2019-09-12 17:44] LABS: BUN Creatinine Ratio 19.4 (6-22); Blood Urea Nitrogen 24 mg/dL (9-20); Calcium 9.7 mg/dL (8.4-10.2); Carbon Dioxide 33 mmol/L (22-32); Chloride 98 mmol/L (98-107); Estimated Glomerular Filt Rate 58.3 mL/min (>60); Glucose 88 mg/dL (80-110); HEMOLYSIS < 15 (0-50); Potassium 4.3 mmol/L (3.4-5.1); Sodium 137 mmol/L (137-145)
[2019-09-12 18:27] LABS: Creatinine Urine Random 85.4 mg/dL; Protein (Total) Urine Random 7 mg/dL (0-12); Protein Creatinine Ratio Urine 0.08 GRAM/24H
[2019-09-13 06:51] LABS: Parathyroid Hormone Int 33 pg/mL (15-65)
== END ==
PROVIDERS: Family Provider Family Medicine; PCP Family Medicine; Referring Provider Student in an Organized Health Care Education/Training Program; Visit Provider Student in an Organized Health Care Education/Training Program
DX: N05.9 Unspecified nephritic syndrome with unspecified morphologic changes (principal); D64.9 Anemia, unspecified; N25.81 Secondary hyperparathyroidism of renal origin; E87.1 Hypo-osmolality and hyponatremia
CPT/HCPCS: 36415; 80048; 82570; 83970; 84156; 85014; 85018

== ENCOUNTER → 2020-02-09 08:15 | Outpatient (CLI) | payer BC, SELFPAY ==
[2020-02-09 09:03] LABS: Add Manual Diff / Slide Review NO; Basophils Absolute Auto 100 /uL (0-100); Basophils Percent Auto 1.1 % (0-2); Eosinophils Absolute Auto 100 /uL (0-450); Eosinophils Percent Auto 1.9 % (2-4); Hematocrit 46.5 % (41-53); Hemoglobin 15.8 g/dL (13.5-17.5); Lymphocytes Absolute Auto 1200 /uL (1100-4500); Mean Corpuscular Hemoglobin 31.4 PG (26-34); Mean Corpuscular Volume 92.3 fL (80-100); Monocytes Absolute Auto 700 /uL (0-900); Monocytes Percent Auto 11.6 % (3-14); Neutrophils Absolute Auto 3800 /uL (1500-7000); Neutrophils Percent Auto 64.4 % (50-75); Platelet Count 186 X10^3/uL (150-400); Red Blood Cell Count 5.04 X10^6/uL (4.5-5.9); Red Cell Distribution Width 12.9 % (11.6-14.8); White Blood Cell Count 5.9 X10^3/uL (4.5-11.0)
[2020-02-09 09:16] LABS: Alanine Aminotransferase 36 IU/L (<50); Albumin 4.5 g/dL (3.5-5.0); Albumin Globulin Ratio 1.3 (1.0-2.8); Alkaline Phosphatase 54 U/L (38-126); Aspartate Aminotransferase 54 IU/L (17-59); BUN Creatinine Ratio 18.3 (6-22); Bilirubin Total 1.1 mg/dL (0.2-1.3); Blood Urea Nitrogen 23 mg/dL (9-20); Calcium 9.4 mg/dL (8.4-10.2); Carbon Dioxide 31 mmol/L (22-32); Chloride 102 mmol/L (98-107); Estimated Glomerular Filt Rate 57.3 mL/min (>60); Globulin 3.4 g/dL (1.7-4.1); Glucose 109 mg/dL (80-110); HEMOLYSIS < 15 (0-50); Potassium 4.6 mmol/L (3.4-5.1); Sodium 138 mmol/L (137-145); Total Protein 7.9 g/dL (6.3-8.2)
== END ==
PROVIDERS: Family Provider Family Medicine; PCP Family Medicine; Referring Provider Psychiatry & Neurology Neurology; Visit Provider Psychiatry & Neurology Neurology
DX: Z51.81 Encounter for therapeutic drug level monitoring (principal)
CPT/HCPCS: 36415; 80053; 85025

== ENCOUNTER → 2020-03-21 08:20 | Outpatient (CLI) | payer BC, SELFPAY ==
--- NOTE | 2020-03-21 | DI.US.S_ITS ---
PROCEDURE: US ABD AORTA ANEURYSM SCREEN INDICATIONS: HISTORY OF NICOTINE DEPENDANCE TECHNIQUE: Real time scanning was performed of the aorta and iliac arteries, with image documentation. COMPARISON: None. FINDINGS: Aorta: Proximal aortic is not well seen. However normal on prior CT of the chest from 2019. Mid-aorta measures 2 cm cm. Distal aortic diameter is 1.6 cm. Iliac arteries: Right common iliac artery measures 1.6 cm. Left common iliac artery measures 1.4 cm. Large simple left renal superior pole cyst measuring 9 x 8 x 8 cm. IMPRESSION: No abdominal aortic aneurysm. Dictated by: Dannie Bacon M.D. on 03/21/2020 at 8:25 Approved by: Dannie Bacon M.D. on 03/21/2020 at 8:32
== END ==
PROVIDERS: Referring Provider Nurse Practitioner Family; Visit Provider Nurse Practitioner Family
DX: Z13.6 Encounter for screening for cardiovascular disorders (principal); N28.1 Cyst of kidney, acquired; Z87.891 Personal history of nicotine dependence
CPT/HCPCS: 76706

== ENCOUNTER → 2020-07-10 09:38 | Outpatient (CLI) | payer BC, SELFPAY ==
[2020-07-10 10:22] LABS: Add Manual Diff / Slide Review NO; Basophils Absolute Auto 100 /uL (0-100); Eosinophils Absolute Auto 100 /uL (0-450); Eosinophils Percent Auto 1.4 % (2-4); Hematocrit 43.4 % (41-53); Hemoglobin 14.9 g/dL (13.5-17.5); Lymphocytes Absolute Auto 1400 /uL (1100-4500); Lymphocytes Percent Auto 18.3 % (25-40); Mean Corpuscular HGB Conc 34.3 % (30-36); Mean Corpuscular Hemoglobin 31.6 PG (26-34); Mean Corpuscular Volume 92.2 fL (80-100); Monocytes Absolute Auto 800 /uL (0-900); Monocytes Percent Auto 10.6 % (3-14); Neutrophils Absolute Auto 5400 /uL (1500-7000); Neutrophils Percent Auto 68.7 % (50-75); Platelet Count 192 X10^3/uL (150-400); Red Cell Distribution Width 13.3 % (11.6-14.8); White Blood Cell Count 7.9 X10^3/uL (4.5-11.0)
[2020-07-10 11:00] LABS: Erythrocyte Sedimentation Rate 4 MM/HR (0-15)
[2020-07-10 11:07] LABS: Alanine Aminotransferase 36 IU/L (<50); Albumin 4.5 g/dL (3.5-5.0); Albumin Globulin Ratio 1.5 (1.0-2.8); Alkaline Phosphatase 67 U/L (38-126); Aspartate Aminotransferase 49 IU/L (17-59); BUN Creatinine Ratio 21.8 (6-22); Bilirubin Total 1.1 mg/dL (0.2-1.3); Blood Urea Nitrogen 27 mg/dL (9-20); Calcium 9.7 mg/dL (8.4-10.2); Carbon Dioxide 29 mmol/L (22-32); Chloride 101 mmol/L (98-107); Estimated Glomerular Filt Rate 58.1 mL/min (>60); Glucose 94 mg/dL (80-110); HEMOLYSIS < 15 (0-50); Potassium 4.5 mmol/L (3.4-5.1); Sodium 138 mmol/L (137-145); Total Protein 7.5 g/dL (6.3-8.2)
[2020-07-10 11:12] LABS: High Sensitivity CRP - Cardiac 0.7 mg/L (1.0-3.0)
[2020-07-13 15:02] LABS: ANA Screen, IFA Negative (.)
== END ==
PROVIDERS: Referring Provider Ophthalmology; Visit Provider Ophthalmology
DX: H35.061 Retinal vasculitis, right eye (principal)
CPT/HCPCS: 36415; 80053; 85025; 85651; 86038; 86140

== ENCOUNTER → 2020-07-14 07:03 | Outpatient (CLI) | payer BC, SELFPAY ==
--- NOTE | 2020-07-14 | DI.US.S_ITS ---
PROCEDURE: US CAROTID DOPPLER BI INDICATIONS: RIGHT RETINAL ASCULITIS TECHNIQUE: Color and pulse Doppler interrogation was performed of both carotid systems, with image documentation and velocity measurements. COMPARISON: CT, SOFT TISSUE NECK WITHOUT CONTR, 07/11/2015, 12:36. FINDINGS: Stenosis calculations are based on SRU (Society of Radi[employer] in Ultras[employer]) criteria. Right side: Brachial blood pressure: 133/75 mm Hg. Common carotid artery peak systolic velocity: 94 cm/sec. Internal carotid artery peak systolic velocity: 74 cm/sec. Internal carotid artery end diastolic velocity: 26 cm/sec. External carotid artery peak systolic velocity: 94 cm/sec. ICA/CCA peak systolic ratio: 0.8 . Lincoln scale imaging description: Minimal plaque at the bifurcation. Percent internal carotid artery stenosis: Less than 50%. Vertebral artery: Flow direction is antegrade. Left side: Brachial blood pressure: 137/80 mm Hg. Common carotid artery peak systolic velocity: 98 cm/sec. Internal carotid artery peak systolic velocity: 70 cm/sec. Internal carotid artery end diastolic velocity: 25 cm/sec. External carotid artery peak systolic velocity: 70 cm/sec. ICA/CCA peak systolic ratio: 0.7. Lincoln scale imaging description: Minimal to mild plaque at the bifurcation. Percent internal carotid artery stenosis: Less than 50%. . Vertebral artery: Flow direction is antegrade. Within the left lateral neck, there is a lobulated focus of heterogeneous echogenicity measuring 2.9 x 1.6 x 2.0 cm. Minimal increased vascularity is noted. IMPRESSION: 1. Less than 50% stenosis of the internal carotid arteries bilaterally. 2. Focus of lobulated heterogeneous echogenicity within the left neck, new as above. While this could represent an enlarged lymph node, mass lesions of other etiology, potentially malignancy cannot be excluded. Recommend correlation to patient's symptoms such as infection or inflammation. Otherwise, CT neck with contrast is recommended for further evaluation. Dictated by: Janay Mayorga M.D. on 07/14/2020 at 13:36 Approved by: Janay Mayorga M.D. on 07/14/2020 at 13:44
== END ==
PROVIDERS: PCP Family Medicine; Referring Provider Ophthalmology; Visit Provider Ophthalmology
DX: H35.061 Retinal vasculitis, right eye (principal); I65.23 Occlusion and stenosis of bilateral carotid arteries
CPT/HCPCS: 93880

== ENCOUNTER → 2020-08-21 17:42 | Outpatient (CLI) | payer BC, SELFPAY ==
[2020-08-21 18:05] LABS: Add Manual Diff / Slide Review NO; Basophils Absolute Auto 100 /uL (0-100); Eosinophils Absolute Auto 100 /uL (0-450); Eosinophils Percent Auto 2.3 % (2-4); Hematocrit 47.3 % (41-53); Hemoglobin 16.2 g/dL (13.5-17.5); Lymphocytes Absolute Auto 1700 /uL (1100-4500); Mean Corpuscular HGB Conc 34.1 % (30-36); Mean Corpuscular Hemoglobin 31.8 PG (26-34); Mean Corpuscular Volume 93.1 fL (80-100); Monocytes Absolute Auto 700 /uL (0-900); Monocytes Percent Auto 12.3 % (3-14); Neutrophils Absolute Auto 3200 /uL (1500-7000); Neutrophils Percent Auto 55.4 % (50-75); Platelet Count 179 X10^3/uL (150-400); Red Blood Cell Count 5.09 X10^6/uL (4.5-5.9); Red Cell Distribution Width 13.3 % (11.6-14.8); White Blood Cell Count 5.7 X10^3/uL (4.5-11.0)
[2020-08-21 18:23] LABS: Alanine Aminotransferase 32 IU/L (<50); Albumin 4.8 g/dL (3.5-5.0); Albumin Globulin Ratio 1.4 (1.0-2.8); Alkaline Phosphatase 85 U/L (38-126); Aspartate Aminotransferase 47 IU/L (17-59); Bilirubin Total 1.5 mg/dL (0.2-1.3); Blood Urea Nitrogen 22 mg/dL (9-20); Carbon Dioxide 29 mmol/L (22-32); Chloride 100 mmol/L (98-107); Estimated Glomerular Filt Rate 59.2 mL/min (>60); Globulin 3.4 g/dL (1.7-4.1); Glucose 89 mg/dL (80-110); HEMOLYSIS < 15 (0-50); Potassium 4.4 mmol/L (3.4-5.1); Sodium 138 mmol/L (137-145); Total Protein 8.2 g/dL (6.3-8.2)
== END ==
PROVIDERS: PCP Family Medicine; Referring Provider Psychiatry & Neurology Neurology; Visit Provider Psychiatry & Neurology Neurology
DX: Z51.81 Encounter for therapeutic drug level monitoring (principal)
CPT/HCPCS: 36415; 80053; 85025

== ENCOUNTER → 2020-10-30 09:07 | Outpatient (CLI) | payer MEDICARE, OTHER, SELFPAY ==
[2020-10-30 10:08] LABS: Hematocrit 48.4 % (41-53); Hemoglobin 16.1 g/dL (13.5-17.5)
[2020-10-30 10:26] LABS: BUN Creatinine Ratio 19.3 (6-22); Blood Urea Nitrogen 21 mg/dL (9-20); Calcium 9.8 mg/dL (8.4-10.2); Carbon Dioxide 30 mmol/L (22-32); Chloride 102 mmol/L (98-107); Estimated Glomerular Filt Rate > 60.0 mL/min (>60); Glucose 90 mg/dL (80-110); HEMOLYSIS < 15 (0-50); Potassium 5.1 mmol/L (3.4-5.1); Sodium 140 mmol/L (137-145)
[2020-10-30 10:28] LABS: Creatinine Urine Random 223.6 mg/dL
[2020-10-30 10:32] LABS: Protein (Total) Urine Random < 5 mg/dL (0-12); Protein Creatinine Ratio Urine 0.02 GRAM/24H
[2020-10-31 08:09] LABS: Parathyroid Hormone Int 19 pg/mL (15-65)
== END ==
PROVIDERS: PCP Family Medicine; Referring Provider Student in an Organized Health Care Education/Training Program; Visit Provider Student in an Organized Health Care Education/Training Program
DX: R80.9 Proteinuria, unspecified (principal); N05.9 Unspecified nephritic syndrome with unspecified morphologic changes
CPT/HCPCS: 36415; 80048; 82570; 83970; 84156; 85014; 85018

== ENCOUNTER → 2020-11-07 10:25 | Outpatient (CLI) | payer MEDICARE, OTHER, SELFPAY ==
[2020-11-07 15:19] LABS: Cholesterol 282 mg/dL (140-199); HDL Cholesterol 57 mg/dL (40-60); LDL Cholesterol Calculated 193 mg/dL (<100); Triglycerides 160 mg/dL (35-150)
[2020-11-07 16:03] LABS: Prostate Specific Antigen 39.5 ng/mL (0.10-4.00)
== END ==
PROVIDERS: Specialist; PCP Family Medicine; Referring Provider Family Medicine; Visit Provider Family Medicine
DX: E78.5 Hyperlipidemia, unspecified (principal); R97.20 Elevated prostate specific antigen [PSA]
CPT/HCPCS: 36415; 80061; 84153

== ENCOUNTER → 2021-03-04 11:43 | Outpatient (CLI) | payer MEDICARE, OTHER, SELFPAY ==
[2021-03-04 13:28] LABS: HEMOLYSIS < 15 (0-50); Potassium 4.4 mmol/L (3.4-5.1)
[2021-03-04 13:29] LABS: Alanine Aminotransferase 47 IU/L (<50); Albumin 4.4 g/dL (3.5-5.0); Albumin Globulin Ratio 1.7 (1.0-2.8); Alkaline Phosphatase 54 U/L (38-126); Aspartate Aminotransferase 49 IU/L (17-59); BUN Creatinine Ratio 19.8 (6-22); Bilirubin Total 1.1 mg/dL (0.2-1.3); Blood Urea Nitrogen 24 mg/dL (9-20); Calcium 9.4 mg/dL (8.4-10.2); Carbon Dioxide 32 mmol/L (22-32); Chloride 103 mmol/L (98-107); Estimated Glomerular Filt Rate 59.8 mL/min (>60); Globulin 2.6 g/dL (1.7-4.1); Glucose 108 mg/dL (80-110); Sodium 140 mmol/L (137-145)
[2021-03-04 14:00] LABS: Prostate Specific Antigen 7.69 ng/mL (0.10-4.00)
== END ==
PROVIDERS: PCP Family Medicine; Referring Provider Nurse Practitioner Gerontology; Visit Provider Nurse Practitioner Gerontology
DX: C61 Malignant neoplasm of prostate (principal)
CPT/HCPCS: 36415; 80053; 84153

== ENCOUNTER → 2021-03-16 11:43 | Outpatient (CLI) | payer MEDICARE, OTHER, SELFPAY ==
[2021-03-16 13:23] LABS: Alanine Aminotransferase 297 IU/L (<50); Albumin 4.4 g/dL (3.5-5.0); Albumin Globulin Ratio 1.5 (1.0-2.8); Alkaline Phosphatase 79 U/L (38-126); Aspartate Aminotransferase 195 IU/L (17-59); Bilirubin Total 1.6 mg/dL (0.2-1.3); Blood Urea Nitrogen 18 mg/dL (9-20); Calcium 9.9 mg/dL (8.4-10.2); Carbon Dioxide 35 mmol/L (22-32); Chloride 100 mmol/L (98-107); Estimated Glomerular Filt Rate 55.4 mL/min (>60); Globulin 2.9 g/dL (1.7-4.1); Glucose 105 mg/dL (80-110); HEMOLYSIS < 15 (0-50); Potassium 4.3 mmol/L (3.4-5.1); Sodium 139 mmol/L (137-145); Total Protein 7.3 g/dL (6.3-8.2)
== END ==
PROVIDERS: PCP Family Medicine; Referring Provider Nurse Practitioner Gerontology; Visit Provider Nurse Practitioner Gerontology
DX: C61 Malignant neoplasm of prostate (principal)
CPT/HCPCS: 36415; 80053; 84153

== ENCOUNTER → 2021-04-01 10:45 | Outpatient (CLI) | payer MEDICARE, OTHER, SELFPAY ==
[2021-04-01 13:45] LABS: Alanine Aminotransferase 67 IU/L (<50); Albumin 4.5 g/dL (3.5-5.0); Albumin Globulin Ratio 1.4 (1.0-2.8); Alkaline Phosphatase 84 U/L (38-126); Aspartate Aminotransferase 43 IU/L (17-59); BUN Creatinine Ratio 19.4 (6-22); Bilirubin Total 0.9 mg/dL (0.2-1.3); Blood Urea Nitrogen 21 mg/dL (9-20); Calcium 9.6 mg/dL (8.4-10.2); Carbon Dioxide 31 mmol/L (22-32); Chloride 100 mmol/L (98-107); Estimated Glomerular Filt Rate > 60.0 mL/min (>60); Globulin 3.3 g/dL (1.7-4.1); Glucose 97 mg/dL (80-110); HEMOLYSIS < 15 (0-50); Potassium 4.4 mmol/L (3.4-5.1); Sodium 138 mmol/L (137-145); Total Protein 7.8 g/dL (6.3-8.2)
[2021-04-01 14:14] LABS: Prostate Specific Antigen 0.955 ng/mL (0.10-4.00)
== END ==
PROVIDERS: PCP Family Medicine; Referring Provider Internal Medicine Hematology & Oncology; Visit Provider Nurse Practitioner Gerontology
DX: C61 Malignant neoplasm of prostate (principal)
CPT/HCPCS: 36415; 80053; 84153

== ENCOUNTER → 2021-04-10 10:33 | Outpatient (CLI) | payer MEDICARE, OTHER, SELFPAY ==
[2021-04-10 11:30] LABS: Alanine Aminotransferase 451 IU/L (<50); Albumin 4.5 g/dL (3.5-5.0); Alkaline Phosphatase 187 U/L (38-126); Aspartate Aminotransferase 115 IU/L (17-59); Bilirubin Total 1.2 mg/dL (0.2-1.3); Calcium 9.9 mg/dL (8.4-10.2); HEMOLYSIS < 15 (0-50)
[2021-04-10 12:11] LABS: Albumin Globulin Ratio 1.5 (1.0-2.8); BUN Creatinine Ratio 19.4 (6-22); Blood Urea Nitrogen 21 mg/dL (9-20); Carbon Dioxide 31 mmol/L (22-32); Chloride 102 mmol/L (98-107); Estimated Glomerular Filt Rate > 60.0 mL/min (>60); Globulin 3.1 g/dL (1.7-4.1); Glucose 97 mg/dL (80-110); Potassium 4.1 mmol/L (3.4-5.1); Sodium 138 mmol/L (137-145); Total Protein 7.6 g/dL (6.3-8.2)
== END ==
PROVIDERS: PCP Family Medicine; Referring Provider Nurse Practitioner Gerontology; Visit Provider Nurse Practitioner Gerontology
DX: C61 Malignant neoplasm of prostate (principal)
CPT/HCPCS: 36415; 80053

== ENCOUNTER → 2021-04-24 10:29 | Outpatient (CLI) | payer MEDICARE, OTHER, SELFPAY ==
[2021-04-24 12:23] LABS: Alanine Aminotransferase 41 IU/L (<50); Albumin 4.4 g/dL (3.5-5.0); Albumin Globulin Ratio 1.7 (1.0-2.8); Alkaline Phosphatase 79 U/L (38-126); Aspartate Aminotransferase 33 IU/L (17-59); BUN Creatinine Ratio 15.5 (6-22); Bilirubin Total 0.9 mg/dL (0.2-1.3); Blood Urea Nitrogen 18 mg/dL (9-20); Carbon Dioxide 33 mmol/L (22-32); Chloride 102 mmol/L (98-107); Estimated Glomerular Filt Rate > 60.0 mL/min (>60); Globulin 2.6 g/dL (1.7-4.1); Glucose 95 mg/dL (80-110); HEMOLYSIS < 15 (0-50); Potassium 4.7 mmol/L (3.4-5.1); Sodium 139 mmol/L (137-145)
[2021-04-24 12:47] LABS: Prostate Specific Antigen 0.107 ng/mL (0.10-4.00)
== END ==
PROVIDERS: PCP Family Medicine; Referring Provider Nurse Practitioner Gerontology; Visit Provider Nurse Practitioner Gerontology
DX: C61 Malignant neoplasm of prostate (principal)
CPT/HCPCS: 36415; 80053; 84153

== ENCOUNTER → 2021-05-07 12:27 | Outpatient (CLI) | payer MEDICARE, OTHER, SELFPAY ==
[2021-05-07 14:01] LABS: Alanine Aminotransferase 38 IU/L (<50); Albumin 4.6 g/dL (3.5-5.0); Albumin Globulin Ratio 1.4 (1.0-2.8); Alkaline Phosphatase 56 U/L (38-126); Aspartate Aminotransferase 44 IU/L (17-59); Bilirubin Total 1.1 mg/dL (0.2-1.3); Blood Urea Nitrogen 22 mg/dL (9-20); Calcium 9.8 mg/dL (8.4-10.2); Carbon Dioxide 35 mmol/L (22-32); Chloride 101 mmol/L (98-107); Estimated Glomerular Filt Rate > 60.0 mL/min (>60); Globulin 3.3 g/dL (1.7-4.1); Glucose 105 mg/dL (80-110); HEMOLYSIS < 15 (0-50); Potassium 4.1 mmol/L (3.4-5.1); Sodium 141 mmol/L (137-145); Total Protein 7.9 g/dL (6.3-8.2)
[2021-05-07 14:29] LABS: Prostate Specific Antigen < 0.064 ng/mL (0.10-4.00)
== END ==
PROVIDERS: PCP Family Medicine; Referring Provider Nurse Practitioner Gerontology; Visit Provider Nurse Practitioner Gerontology
DX: C61 Malignant neoplasm of prostate (principal)
CPT/HCPCS: 36415; 80053; 84153

== ENCOUNTER → 2021-05-15 13:54 | Outpatient (CLI) | payer MEDICARE, OTHER, SELFPAY ==
[2021-05-15 15:48] LABS: Vitamin B12 773 pg/mL (239-931)
== END ==
PROVIDERS: PCP Family Medicine; Referring Provider Psychiatry & Neurology Neurology; Visit Provider Psychiatry & Neurology Neurology
DX: E53.8 Deficiency of other specified B group vitamins (principal)
CPT/HCPCS: 36415; 82607

== ENCOUNTER → 2021-05-25 15:41 | Outpatient (CLI) | payer MEDICARE, OTHER, SELFPAY ==
[2021-05-25 17:18] LABS: Alanine Aminotransferase 36 IU/L (<50); Albumin 4.7 g/dL (3.5-5.0); Albumin Globulin Ratio 1.6 (1.0-2.8); Alkaline Phosphatase 50 U/L (38-126); Aspartate Aminotransferase 40 IU/L (17-59); BUN Creatinine Ratio 18.5 (6-22); Bilirubin Total 1.2 mg/dL (0.2-1.3); Blood Urea Nitrogen 23 mg/dL (9-20); Calcium 9.6 mg/dL (8.4-10.2); Carbon Dioxide 32 mmol/L (22-32); Chloride 101 mmol/L (98-107); Glucose 110 mg/dL (80-110); HEMOLYSIS 18 (0-50); Potassium 4.7 mmol/L (3.4-5.1); Sodium 141 mmol/L (137-145); Total Protein 7.7 g/dL (6.3-8.2)
[2021-05-25 17:50] LABS: Prostate Specific Antigen < 0.064 ng/mL (0.10-4.00)
== END ==
PROVIDERS: PCP Family Medicine; Referring Provider Nurse Practitioner Gerontology; Visit Provider Nurse Practitioner Gerontology
DX: C61 Malignant neoplasm of prostate (principal)
CPT/HCPCS: 36415; 80053; 84153

== ENCOUNTER → 2021-06-19 16:25 | Outpatient (CLI) | payer MEDICARE, OTHER, SELFPAY ==
[2021-06-19 17:14] LABS: Alanine Aminotransferase 35 IU/L (<50); Albumin 4.7 g/dL (3.5-5.0); Albumin Globulin Ratio 1.5 (1.0-2.8); Alkaline Phosphatase 43 U/L (38-126); Aspartate Aminotransferase 44 IU/L (17-59); BUN Creatinine Ratio 22.7 (6-22); Bilirubin Total 1.1 mg/dL (0.2-1.3); Blood Urea Nitrogen 30 mg/dL (9-20); Calcium 9.6 mg/dL (8.4-10.2); Carbon Dioxide 32 mmol/L (22-32); Chloride 101 mmol/L (98-107); Estimated Glomerular Filt Rate 53.9 mL/min (>60); Globulin 3.1 g/dL (1.7-4.1); Glucose 102 mg/dL (80-110); HEMOLYSIS < 15 (0-50); Potassium 4.7 mmol/L (3.4-5.1); Sodium 140 mmol/L (137-145); Total Protein 7.8 g/dL (6.3-8.2)
[2021-06-19 17:46] LABS: Prostate Specific Antigen < 0.064 ng/mL (0.10-4.00)
== END ==
PROVIDERS: PCP Family Medicine; Referring Provider Nurse Practitioner Gerontology; Visit Provider Nurse Practitioner Gerontology
DX: C61 Malignant neoplasm of prostate (principal)
CPT/HCPCS: 36415; 80053; 84153

== ENCOUNTER → 2021-07-17 16:15 | Outpatient (CLI) | payer MEDICARE, OTHER, SELFPAY ==
[2021-07-17 17:01] LABS: Alanine Aminotransferase 31 IU/L (<50); Albumin 4.3 g/dL (3.5-5.0); Albumin Globulin Ratio 1.4 (1.0-2.8); Alkaline Phosphatase 44 U/L (38-126); Aspartate Aminotransferase 40 IU/L (17-59); BUN Creatinine Ratio 20.5 (6-22); Blood Urea Nitrogen 25 mg/dL (9-20); Calcium 9.3 mg/dL (8.4-10.2); Carbon Dioxide 36 mmol/L (22-32); Chloride 101 mmol/L (98-107); Estimated Glomerular Filt Rate > 60 mL/min (>60); Glucose 116 mg/dL (80-110); HEMOLYSIS < 15 (0-50); Potassium 4.2 mmol/L (3.4-5.1); Sodium 140 mmol/L (137-145); Total Protein 7.3 g/dL (6.3-8.2)
[2021-07-17 17:36] LABS: Prostate Specific Antigen < 0.064 ng/mL (0.10-4.00)
== END ==
PROVIDERS: PCP Family Medicine; Referring Provider Nurse Practitioner Gerontology; Visit Provider Nurse Practitioner Gerontology
DX: C61 Malignant neoplasm of prostate (principal)
CPT/HCPCS: 36415; 80053; 84153

== ENCOUNTER → 2021-08-14 17:10 | Outpatient (CLI) | payer MEDICARE, OTHER, SELFPAY ==
[2021-08-14 19:01] LABS: Alanine Aminotransferase 32 IU/L (<50); Albumin 4.7 g/dL (3.5-5.0); Albumin Globulin Ratio 1.5 (1.0-2.8); Alkaline Phosphatase 56 U/L (38-126); Aspartate Aminotransferase 48 IU/L (17-59); BUN Creatinine Ratio 20.5 (6-22); Bilirubin Total 1.2 mg/dL (0.2-1.3); Blood Urea Nitrogen 24 mg/dL (9-20); Calcium 9.9 mg/dL (8.4-10.2); Carbon Dioxide 33 mmol/L (22-32); Chloride 101 mmol/L (98-107); Estimated Glomerular Filt Rate > 60 mL/min (>60); Globulin 3.2 g/dL (1.7-4.1); Glucose 101 mg/dL (80-110); HEMOLYSIS < 15 (0-50); Potassium 4.3 mmol/L (3.4-5.1); Sodium 139 mmol/L (137-145); Total Protein 7.9 g/dL (6.3-8.2)
[2021-08-14 19:45] LABS: Prostate Specific Antigen < 0.064 ng/mL (0.10-4.00)
== END ==
PROVIDERS: PCP Family Medicine; Referring Provider Nurse Practitioner Gerontology; Visit Provider Nurse Practitioner Gerontology
DX: C61 Malignant neoplasm of prostate (principal)
CPT/HCPCS: 36415; 80053; 84153

== ENCOUNTER → 2021-08-28 16:47 | Outpatient (CLI) | payer MEDICARE, OTHER, SELFPAY ==
[2021-08-28 22:46] LABS: Albumin 4.5 g/dL (3.5-5.0); Albumin Globulin Ratio 1.5 (1.0-2.8); Aspartate Aminotransferase 51 IU/L (17-59); BUN Creatinine Ratio 22.6 (6-22); Bilirubin Total 1.1 mg/dL (0.2-1.3); Blood Urea Nitrogen 28 mg/dL (9-20); Carbon Dioxide 32 mmol/L (22-32); Estimated Glomerular Filt Rate > 60 mL/min (>60); Globulin 3.1 g/dL (1.7-4.1); HEMOLYSIS < 15 (0-50); Total Protein 7.6 g/dL (6.3-8.2)
[2021-08-29 00:57] LABS: Alanine Aminotransferase 44 IU/L (<50); Alkaline Phosphatase 54 U/L (38-126); Calcium 9.8 mg/dL (8.4-10.2); Chloride 103 mmol/L (98-107); Glucose 106 mg/dL (80-110); Sodium 140 mmol/L (137-145)
== END ==
PROVIDERS: PCP Family Medicine; Referring Provider Nurse Practitioner Gerontology; Visit Provider Nurse Practitioner Gerontology
DX: C61 Malignant neoplasm of prostate (principal)
CPT/HCPCS: 36415; 80053

== ENCOUNTER → 2021-09-11 14:38 | Outpatient (CLI) | payer MEDICARE, OTHER, SELFPAY ==
[2021-09-11 16:31] LABS: Alanine Aminotransferase 33 IU/L (<50); Albumin 4.2 g/dL (3.5-5.0); Albumin Globulin Ratio 1.4 (1.0-2.8); Alkaline Phosphatase 51 U/L (38-126); Aspartate Aminotransferase 48 IU/L (17-59); BUN Creatinine Ratio 17.8 (6-22); Bilirubin Total 0.7 mg/dL (0.2-1.3); Blood Urea Nitrogen 21 mg/dL (9-20); Calcium 9.3 mg/dL (8.4-10.2); Carbon Dioxide 31 mmol/L (22-32); Chloride 102 mmol/L (98-107); Estimated Glomerular Filt Rate > 60 mL/min (>60); Globulin 2.9 g/dL (1.7-4.1); Glucose 89 mg/dL (80-110); HEMOLYSIS < 15 (0-50); Potassium 4.2 mmol/L (3.4-5.1); Sodium 139 mmol/L (137-145); Total Protein 7.1 g/dL (6.3-8.2)
[2021-09-11 17:02] LABS: Prostate Specific Antigen < 0.064 ng/mL (0.10-4.00)
== END ==
PROVIDERS: PCP Family Medicine; Referring Provider Nurse Practitioner Gerontology; Visit Provider Nurse Practitioner Gerontology
DX: C61 Malignant neoplasm of prostate (principal)
CPT/HCPCS: 36415; 80053; 84153

== ENCOUNTER → 2021-09-25 14:30 | Outpatient (CLI) | payer MEDICARE, OTHER, SELFPAY ==
[2021-09-25 15:56] LABS: Alanine Aminotransferase 29 IU/L (<50); Albumin 4.3 g/dL (3.5-5.0); Albumin Globulin Ratio 1.5 (1.0-2.8); Alkaline Phosphatase 50 U/L (38-126); Aspartate Aminotransferase 38 IU/L (17-59); BUN Creatinine Ratio 21.8 (6-22); Bilirubin Total 0.9 mg/dL (0.2-1.3); Blood Urea Nitrogen 27 mg/dL (9-20); Calcium 9.2 mg/dL (8.4-10.2); Carbon Dioxide 31 mmol/L (22-32); Chloride 102 mmol/L (98-107); Estimated Glomerular Filt Rate > 60 mL/min (>60); Globulin 2.8 g/dL (1.7-4.1); Glucose 106 mg/dL (80-110); HEMOLYSIS < 15 (0-50); Sodium 141 mmol/L (137-145); Total Protein 7.1 g/dL (6.3-8.2)
== END ==
PROVIDERS: PCP Family Medicine; Referring Provider Nurse Practitioner Gerontology; Visit Provider Nurse Practitioner Gerontology
DX: C61 Malignant neoplasm of prostate (principal)
CPT/HCPCS: 36415; 80053

== ENCOUNTER → 2021-10-09 16:30 | Outpatient (CLI) | payer MEDICARE, OTHER, SELFPAY ==
[2021-10-09 18:18] LABS: Alanine Aminotransferase 27 IU/L (<50); Albumin 4.4 g/dL (3.5-5.0); Albumin Globulin Ratio 1.6 (1.0-2.8); Alkaline Phosphatase 51 U/L (38-126); Aspartate Aminotransferase 40 IU/L (17-59); BUN Creatinine Ratio 22.2 (6-22); Bilirubin Total 1.1 mg/dL (0.2-1.3); Blood Urea Nitrogen 24 mg/dL (9-20); Calcium 9.4 mg/dL (8.4-10.2); Carbon Dioxide 28 mmol/L (22-32); Chloride 104 mmol/L (98-107); Estimated Glomerular Filt Rate > 60 mL/min (>60); Globulin 2.7 g/dL (1.7-4.1); Glucose 106 mg/dL (80-110); HEMOLYSIS < 15 (0-50); Potassium 4.1 mmol/L (3.4-5.1); Sodium 141 mmol/L (137-145); Total Protein 7.1 g/dL (6.3-8.2)
[2021-10-09 18:50] LABS: Prostate Specific Antigen < 0.064 ng/mL (0.10-4.00)
== END ==
PROVIDERS: PCP Family Medicine; Referring Provider Nurse Practitioner Gerontology; Visit Provider Nurse Practitioner Gerontology
DX: C61 Malignant neoplasm of prostate (principal)
CPT/HCPCS: 36415; 80053; 84153

== ENCOUNTER → 2021-10-23 16:56 | Outpatient (CLI) | payer MEDICARE, OTHER, SELFPAY ==
[2021-10-23 18:32] LABS: Alanine Aminotransferase 28 IU/L (<50); Albumin 4.3 g/dL (3.5-5.0); Albumin Globulin Ratio 1.5 (1.0-2.8); Alkaline Phosphatase 49 U/L (38-126); Aspartate Aminotransferase 37 IU/L (17-59); BUN Creatinine Ratio 27.2 (6-22); Bilirubin Total 0.9 mg/dL (0.2-1.3); Blood Urea Nitrogen 31 mg/dL (9-20); Calcium 9.4 mg/dL (8.4-10.2); Carbon Dioxide 31 mmol/L (22-32); Chloride 103 mmol/L (98-107); Estimated Glomerular Filt Rate > 60 mL/min (>60); Globulin 2.9 g/dL (1.7-4.1); Glucose 118 mg/dL (80-110); HEMOLYSIS < 15 (0-50); Potassium 4.8 mmol/L (3.4-5.1); Sodium 141 mmol/L (137-145); Total Protein 7.2 g/dL (6.3-8.2)
== END ==
PROVIDERS: PCP Family Medicine; Referring Provider Nurse Practitioner Gerontology; Visit Provider Nurse Practitioner Gerontology
DX: C61 Malignant neoplasm of prostate (principal)
CPT/HCPCS: 36415; 80053

== ENCOUNTER → 2021-11-07 10:16 | Outpatient (CLI) | payer MEDICARE, OTHER, SELFPAY ==
[2021-11-07 12:47] LABS: Alanine Aminotransferase 35 IU/L (<50); Albumin 4.3 g/dL (3.5-5.0); Albumin Globulin Ratio 1.5 (1.0-2.8); Alkaline Phosphatase 56 U/L (38-126); Aspartate Aminotransferase 42 IU/L (17-59); BUN Creatinine Ratio 20.8 (6-22); Bilirubin Total 0.8 mg/dL (0.2-1.3); Blood Urea Nitrogen 22 mg/dL (9-20); Calcium 9.5 mg/dL (8.4-10.2); Carbon Dioxide 33 mmol/L (22-32); Chloride 100 mmol/L (98-107); Estimated Glomerular Filt Rate > 60 mL/min (>60); Globulin 2.9 g/dL (1.7-4.1); Glucose 82 mg/dL (80-110); HEMOLYSIS < 15 (0-50); Potassium 3.9 mmol/L (3.4-5.1); Sodium 139 mmol/L (137-145); Total Protein 7.2 g/dL (6.3-8.2)
[2021-11-07 13:14] LABS: Prostate Specific Antigen < 0.064 ng/mL (0.10-4.00)
== END ==
PROVIDERS: PCP Family Medicine; Referring Provider Nurse Practitioner Gerontology; Visit Provider Nurse Practitioner Gerontology
DX: C61 Malignant neoplasm of prostate (principal)
CPT/HCPCS: 36415; 80053; 84153

== ENCOUNTER → 2021-11-20 15:55 | Outpatient (CLI) | payer MEDICARE, OTHER, SELFPAY ==
[2021-11-20 17:03] LABS: Alanine Aminotransferase 25 IU/L (<50); Albumin 4.3 g/dL (3.5-5.0); Albumin Globulin Ratio 1.3 (1.0-2.8); Alkaline Phosphatase 51 U/L (38-126); Aspartate Aminotransferase 36 IU/L (17-59); BUN Creatinine Ratio 24.8 (6-22); Bilirubin Total 0.8 mg/dL (0.2-1.3); Blood Urea Nitrogen 29 mg/dL (9-20); Calcium 9.7 mg/dL (8.4-10.2); Carbon Dioxide 34 mmol/L (22-32); Chloride 99 mmol/L (98-107); Estimated Glomerular Filt Rate > 60 mL/min (>60); Globulin 3.2 g/dL (1.7-4.1); Glucose 115 mg/dL (80-110); HEMOLYSIS < 15 (0-50); Potassium 4.1 mmol/L (3.4-5.1); Sodium 141 mmol/L (137-145); Total Protein 7.5 g/dL (6.3-8.2)
== END ==
PROVIDERS: PCP Family Medicine; Referring Provider Nurse Practitioner Gerontology; Visit Provider Nurse Practitioner Gerontology
DX: C61 Malignant neoplasm of prostate (principal)
CPT/HCPCS: 36415; 80053

== ENCOUNTER → 2022-02-26 13:33 | Outpatient (CLI) | payer MEDICARE, OTHER, SELFPAY ==
[2022-02-26 16:09] LABS: Prostate Specific Antigen < 0.064 ng/mL (0.10-4.00)
== END ==
PROVIDERS: PCP Family Medicine; Referring Provider Nurse Practitioner Gerontology; Visit Provider Nurse Practitioner Gerontology
DX: C61 Malignant neoplasm of prostate (principal)
CPT/HCPCS: 36415; 84153

== ENCOUNTER → 2022-05-20 17:25 | Outpatient (CLI) | payer MEDICARE, OTHER, SELFPAY ==
--- NOTE | 2022-05-20 | DI.MRI.S_ITS ---
PROCEDURE: MR LUMBAR SPINE WO CON INDICATIONS: RADICULOPATHY, LUMBAR REGION TECHNIQUE: Noncontrast sagittal T1 spin echo and T2 fast echo, sagittal STIR, and T2 fast spin echo through the lumbar spine. In cases with scoliosis, additional coronal T2 fast spin echo may be performed. COMPARISON: [facility], MR, MR LUMBAR SPINE WITHOUT CONTRAST, 07/29/2020, 10:11. FINDINGS: Image quality: Excellent. Alignment and Curvature: There is normal bony alignment. Bone Marrow: Marrow is of normal overall signal. Since the prior study, the bone marrow has changed from the top of L4 through the sacrum so that it is diffuse fatty replaced. No acute vertebral body compression fractures. Spinal Cord: Conus medullaris terminates at the T12-L1 level. Visualized cord demonstrates normal signal and size. Paraspinous Soft Tissues: No paravertebral masses. Large left renal cyst. T12-L1: Normal appearance. L1-L2: Interval development of a very shallow left paracentral superior disc extrusion, which is small without any nerve root impingement. No canal stenosis or foraminal stenosis. L2-L3: Slight interval improvement. A diffuse disc bulge is again noted. A small superimposed right lateral recess subarticular disc protrusion has resolved. No significant canal stenosis or foraminal stenosis. L3-L4: Slight interval progression. Disc bulges more prominent, and there is now a superimposed focal left posterior lateral disc protrusion. Mild facet hypertrophy. Canal stenosis is increased, [id number]. Disc material abuts the left L4 nerve root in the left lateral recess and also abuts the left L3 nerve root in the left foramen, with mild to moderate left foraminal narrowing. L4-L5: Slight interval progression. Previous disc bulges now more of a diffuse posterior disc protrusion. Facet hypertrophy. Canal stenosis is increased, moderate. There is now a left foraminal annulus tear and disc bulge immediately subjacent to the left L4 nerve root. There is moderate left foraminal narrowing. L5-S1: Facet hypertrophy. Disc bulge. There is no canal stenosis. There is moderate to severe right foraminal narrowing. There is severe left foraminal narrowing with left foraminal L5 nerve root impingement. IMPRESSION: 1. Bone marrow signal change to diffusely fatty replaced marrow from the top of L4 through the sacrum can be seen with previous radiation. Has this patient undergone radiation? 2. Progressive findings at L3-L4 and L4-L5. At L3-L4, canal stenosis is increased, [id number]. Canal stenosis at L4-L5 is now moderate. 3. L4-L5, a left foraminal annulus tear has developed as well as a disc bulge subjacent to the left L4 nerve root. Question: Does this patient have left L4 radiculitis? 4. As before, moderate to severe right foraminal narrowing and severe left foraminal narrowing at L5-S1. Dictated by: Louis Garcia M.D. on 05/21/2022 at 8:13 Approved by: Louis Garcia M.D. on 05/21/2022 at 8:45
== END ==
PROVIDERS: PCP Family Medicine; Referring Provider Physical Medicine & Rehabilitation; Visit Provider Physical Medicine & Rehabilitation
DX: M51.16 Intervertebral disc disorders with radiculopathy, lumbar region (principal); M48.061 Spinal stenosis, lumbar region without neurogenic claudication; M48.07 Spinal stenosis, lumbosacral region
CPT/HCPCS: 72148

== ENCOUNTER → 2022-05-24 17:02 | Outpatient (CLI) | payer MEDICARE, OTHER, SELFPAY ==
[2022-05-24 17:48] LABS: HEMOLYSIS < 15 (0-50)
[2022-05-24 17:54] LABS: Alanine Aminotransferase 30 IU/L (<50); Albumin 4.2 g/dL (3.5-5.0); Albumin Globulin Ratio 1.3 (1.0-2.8); Alkaline Phosphatase 71 U/L (38-126); Aspartate Aminotransferase 33 IU/L (17-59); Bilirubin Total 0.9 mg/dL (0.2-1.3); Blood Urea Nitrogen 21 mg/dL (9-20); Calcium 9.4 mg/dL (8.4-10.2); Carbon Dioxide 30 mmol/L (22-32); Chloride 102 mmol/L (98-107); Estimated Glomerular Filt Rate > 60 mL/min (>60); Globulin 3.2 g/dL (1.7-4.1); Glucose 112 mg/dL (80-110); Potassium 4.3 mmol/L (3.4-5.1); Sodium 138 mmol/L (137-145); Total Protein 7.4 g/dL (6.3-8.2)
== END ==
PROVIDERS: PCP Family Medicine; Referring Provider Nurse Practitioner Gerontology; Visit Provider Nurse Practitioner Gerontology
DX: C61 Malignant neoplasm of prostate (principal)
CPT/HCPCS: 36415; 80053; 84153

== ENCOUNTER → 2022-08-12 08:55 | Outpatient (CLI) | payer MEDICARE, OTHER, SELFPAY ==
[2022-08-12 09:45] LABS: Alanine Aminotransferase 33 IU/L (<50); Albumin 4.2 g/dL (3.5-5.0); Albumin Globulin Ratio 1.5 (1.0-2.8); Alkaline Phosphatase 80 U/L (38-126); Aspartate Aminotransferase 34 IU/L (17-59); BUN Creatinine Ratio 22.5 (6-22); Bilirubin Total 1.3 mg/dL (0.2-1.3); Blood Urea Nitrogen 23 mg/dL (9-20); Calcium 9.7 mg/dL (8.4-10.2); Carbon Dioxide 34 mmol/L (22-32); Chloride 98 mmol/L (98-107); Estimated Glomerular Filt Rate > 60 mL/min (>60); Globulin 2.8 g/dL (1.7-4.1); Glucose 105 mg/dL (80-110); HEMOLYSIS < 15 (0-50); Potassium 4.5 mmol/L (3.4-5.1); Sodium 137 mmol/L (137-145)
[2022-08-12 10:20] LABS: Prostate Specific Antigen < 0.064 ng/mL (0.10-4.00)
== END ==
PROVIDERS: PCP Family Medicine; Referring Provider Nurse Practitioner Gerontology; Visit Provider Nurse Practitioner Gerontology
DX: C61 Malignant neoplasm of prostate (principal)
CPT/HCPCS: 36415; 80053; 84153

== ENCOUNTER → 2022-11-08 09:07 | Outpatient (CLI) | payer MEDICARE, OTHER, SELFPAY ==
[2022-11-08 10:06] LABS: Alanine Aminotransferase 33 IU/L (<50); Albumin 4.3 g/dL (3.5-5.0); Albumin Globulin Ratio 1.7 (1.0-2.8); Alkaline Phosphatase 70 U/L (38-126); Aspartate Aminotransferase 41 IU/L (17-59); BUN Creatinine Ratio 20.2 (6-22); Bilirubin Total 0.9 mg/dL (0.2-1.3); Blood Urea Nitrogen 20 mg/dL (9-20); Calcium 9.5 mg/dL (8.4-10.2); Carbon Dioxide 30 mmol/L (22-32); Chloride 104 mmol/L (98-107); Estimated Glomerular Filt Rate > 60 mL/min (>60); Globulin 2.6 g/dL (1.7-4.1); Glucose 102 mg/dL (80-110); HEMOLYSIS < 15 (0-50); Sodium 140 mmol/L (137-145); Total Protein 6.9 g/dL (6.3-8.2)
[2022-11-08 10:38] LABS: Prostate Specific Antigen < 0.064 ng/mL (0.10-4.00)
== END ==
PROVIDERS: PCP Family Medicine; Referring Provider Nurse Practitioner Gerontology; Visit Provider Nurse Practitioner Gerontology
DX: C61 Malignant neoplasm of prostate (principal)
CPT/HCPCS: 36415; 80053; 84153

== ENCOUNTER → 2023-02-08 15:26 | Outpatient (CLI) | payer MEDICARE, OTHER, SELFPAY ==
[2023-02-08 16:56] LABS: Alanine Aminotransferase 33 IU/L (<50); Albumin 4.5 g/dL (3.5-5.0); Albumin Globulin Ratio 1.4 (1.0-2.8); Alkaline Phosphatase 72 U/L (38-126); Aspartate Aminotransferase 39 IU/L (17-59); Bilirubin Total 0.9 mg/dL (0.2-1.3); Blood Urea Nitrogen 27 mg/dL (9-20); Carbon Dioxide 30 mmol/L (22-32); Chloride 99 mmol/L (98-107); Estimated Glomerular Filt Rate > 60 mL/min (>60); Globulin 3.2 g/dL (1.7-4.1); Glucose 110 mg/dL (80-110); HEMOLYSIS 17 (0-50); Potassium 4.2 mmol/L (3.4-5.1); Sodium 135 mmol/L (137-145); Total Protein 7.7 g/dL (6.3-8.2)
[2023-02-08 17:28] LABS: Prostate Specific Antigen < 0.064 ng/mL (0.10-4.00)
== END ==
PROVIDERS: PCP Family Medicine; Referring Provider Nurse Practitioner Gerontology; Visit Provider Nurse Practitioner Gerontology
DX: C61 Malignant neoplasm of prostate (principal)
CPT/HCPCS: 36415; 80053; 84153

== ENCOUNTER → 2023-06-23 12:27 | Outpatient (CLI) | payer MEDICARE, OTHER, SELFPAY ==
[2023-06-23 14:06] LABS: Add Manual Diff / Slide Review NO; Basophils Absolute Auto 0 /uL (0-100); Basophils Percent Auto 0.8 % (0-2); Eosinophils Absolute Auto 100 /uL (0-450); Eosinophils Percent Auto 2.6 % (2-4); Hematocrit 40.4 % (41-53); Hemoglobin 13.8 g/dL (13.5-17.5); Lymphocytes Absolute Auto 1100 /uL (1100-4500); Lymphocytes Percent Auto 20.7 % (25-40); Mean Corpuscular HGB Conc 34.1 % (30-36); Mean Corpuscular Hemoglobin 30.9 PG (26-34); Mean Corpuscular Volume 90.7 fL (80-100); Monocytes Absolute Auto 600 /uL (0-900); Monocytes Percent Auto 11.8 % (3-14); Neutrophils Absolute Auto 3300 /uL (1500-7000); Neutrophils Percent Auto 64.1 % (50-75); Platelet Count 168 X10^3/uL (150-400); Red Blood Cell Count 4.46 X10^6/uL (4.5-5.9); Red Cell Distribution Width 13.4 % (11.6-14.8); White Blood Cell Count 5.1 X10^3/uL (4.5-11.0)
[2023-06-23 15:57] LABS: Alanine Aminotransferase 99 IU/L (<50); Albumin 4.2 g/dL (3.5-5.0); Albumin Globulin Ratio 1.4 (1.0-2.8); Alkaline Phosphatase 80 U/L (38-126); Aspartate Aminotransferase 57 IU/L (17-59); BUN Creatinine Ratio 24.3 (6-22); Blood Urea Nitrogen 26 mg/dL (9-20); Calcium 9.7 mg/dL (8.4-10.2); Carbon Dioxide 26 mmol/L (22-32); Chloride 106 mmol/L (98-107); Cholesterol 185 mg/dL (140-199); Estimated Glomerular Filt Rate > 60 mL/min (>60); Glucose 100 mg/dL (80-110); HDL Cholesterol 49 mg/dL (40-60); HEMOLYSIS < 15 (0-50); LDL Cholesterol Calculated 98 mg/dL (<100); Potassium 3.9 mmol/L (3.4-5.1); Sodium 137 mmol/L (137-145); Total Protein 7.2 g/dL (6.3-8.2); Triglycerides 189 mg/dL (35-150)
[2023-06-23 16:29] LABS: Prostate Specific Antigen < 0.064 ng/mL (0.10-4.00)
[2023-06-30 09:28] LABS: Percent Free Testosterone 3.87 % (1.50-4.20); Testosterone Free 0.75 ng/dL (5.00-21.00); Testosterone Total 19.3 ng/dL (264.0-916.0)
== END ==
LOC: LAB 12:30
PROVIDERS: PCP Family Medicine; Referring Provider Psychiatry & Neurology Neurology; Visit Provider Psychiatry & Neurology Neurology
DX: Z51.81 Encounter for therapeutic drug level monitoring (principal); R79.89 Other specified abnormal findings of blood chemistry; E78.5 Hyperlipidemia, unspecified; N40.1 Benign prostatic hyperplasia with lower urinary tract symptoms
CPT/HCPCS: 36415; 80053; 80061; 84153; 84402; 84403; 85025

== ENCOUNTER → 2023-08-09 11:45 | Outpatient (CLI) | payer MEDICARE, OTHER, SELFPAY ==
[2023-08-09 13:31] LABS: Alanine Aminotransferase 112 IU/L (<50); Albumin 4.5 g/dL (3.5-5.0); Alkaline Phosphatase 76 U/L (38-126); Aspartate Aminotransferase 64 IU/L (17-59); BUN Creatinine Ratio 22.6 (6-22); Bilirubin Total 0.8 mg/dL (0.2-1.3); Blood Urea Nitrogen 24 mg/dL (9-20); Calcium 9.4 mg/dL (8.4-10.2); Carbon Dioxide 32 mmol/L (22-32); Chloride 103 mmol/L (98-107); Estimated Glomerular Filt Rate > 60 mL/min (>60); Globulin 2.3 g/dL (1.7-4.1); Glucose 105 mg/dL (80-110); HEMOLYSIS < 15 (0-50); Potassium 4.8 mmol/L (3.4-5.1); Sodium 139 mmol/L (137-145); Total Protein 6.8 g/dL (6.3-8.2)
[2023-08-09 13:55] LABS: Prostate Specific Antigen < 0.064 ng/mL (0.10-4.00)
== END ==
PROVIDERS: PCP Family Medicine; Referring Provider Nurse Practitioner Gerontology; Visit Provider Nurse Practitioner Gerontology
DX: C61 Malignant neoplasm of prostate (principal)
CPT/HCPCS: 36415; 80053; 84153

== ENCOUNTER → 2023-09-09 07:39 | Outpatient (CLI) | payer MEDICARE, OTHER, SELFPAY ==
--- NOTE | 2023-09-09 | DI.NM.S_ITS ---
PROCEDURE: NM EXERCISE TREADMILL NON NUC COMPARISON: None. INDICATIONS: DYSPNEA FINDINGS: The patient exercised for 6 minutes and 32 seconds reaching 10% of maximum predicted heart rate. 7.5METs, ETHEL 0%. Hypertensive response to exercise (resting BP 140/80mmHg, max BP 210/80mmHg). No diagnostic ST changes and no angina during exercise or recovery. Frequent PACs during recovery. IMPRESSION: Low risk, normal treadmill ECG only stress test. Frequent PACs during recovery. Hypertensive response to exercise (resting BP 140/80mmHg, max BP 210/80mmHg). Dictated by: Marko Sparks MD on 09/09/2023 at 13:03 Approved by: Marko Sparks MD on 09/09/2023 at 13:06
== END ==
PROVIDERS: PCP Family Medicine; Referring Provider Family Medicine; Visit Provider Family Medicine
DX: R06.09 Other forms of dyspnea (principal)
CPT/HCPCS: 93017

== ENCOUNTER → 2024-01-23 11:18 | Outpatient (CLI) | payer MEDICARE, OTHER, SELFPAY ==
--- NOTE | 2024-01-23 11:23 | DI.RAD.S_ITS ---
PROCEDURE: XR RIBS LT 2V INDICATIONS: Rib px left side TECHNIQUE: Four views of the left ribs were acquired. COMPARISON: None. FINDINGS: Left ribs are unremarkable -no evidence of fracture. Left lung is well-expanded clear no evidence of pneumothorax or pleural effusion IMPRESSION: Negative Dictated by: Lizandro Olivares M.D. on 01/24/2024 at 11:53 Approved by: Lizandro Olivares M.D. on 01/24/2024 at 11:54
== END ==
PROVIDERS: PCP Family Medicine; Referring Provider Family Medicine; Visit Provider Family Medicine
DX: R07.81 Pleurodynia (principal)
CPT/HCPCS: 71100

== ENCOUNTER → 2024-02-06 14:46 | Outpatient (CLI) | payer MEDICARE, OTHER, SELFPAY ==
[2024-02-06 16:31] LABS: Alanine Aminotransferase 61 IU/L (<50); Albumin 4.5 g/dL (3.5-5.0); Albumin Globulin Ratio 1.7 (1.0-2.8); Alkaline Phosphatase 75 U/L (38-126); Aspartate Aminotransferase 49 IU/L (17-59); BUN Creatinine Ratio 19.4 (6-22); Blood Urea Nitrogen 25 mg/dL (9-20); Calcium 9.7 mg/dL (8.4-10.2); Carbon Dioxide 29 mmol/L (22-32); Chloride 103 mmol/L (98-107); Estimated Glomerular Filt Rate 60 mL/min (>60); Globulin 2.6 g/dL (1.7-4.1); Glucose 117 mg/dL (80-110); HEMOLYSIS < 15 (0-50); Potassium 4.5 mmol/L (3.4-5.1); Sodium 139 mmol/L (137-145); Total Protein 7.1 g/dL (6.3-8.2)
[2024-02-06 17:03] LABS: Prostate Specific Antigen < 0.064 ng/mL (0.10-4.00)
== END ==
LOC: LAB 14:48
PROVIDERS: PCP Family Medicine; Referring Provider Nurse Practitioner Gerontology; Visit Provider Nurse Practitioner Gerontology
DX: C61 Malignant neoplasm of prostate (principal)
CPT/HCPCS: 36415; 80053; 84153

== ENCOUNTER → 2024-06-25 08:00 | Outpatient (CLI) | payer MEDICARE, OTHER, SELFPAY ==
[2024-06-25 08:31] LABS: Add Manual Diff / Slide Review NO; Basophils Absolute Auto 0 /uL (0-100); Eosinophils Absolute Auto 100 /uL (0-450); Eosinophils Percent Auto 2.7 % (2-4); Hematocrit 44.3 % (41-53); Hemoglobin 15.2 g/dL (13.5-17.5); Lymphocytes Absolute Auto 1200 /uL (1100-4500); Lymphocytes Percent Auto 28.1 % (25-40); Mean Corpuscular HGB Conc 34.4 % (30-36); Mean Corpuscular Hemoglobin 31.3 PG (26-34); Mean Corpuscular Volume 91.1 fL (80-100); Monocytes Absolute Auto 600 /uL (0-900); Neutrophils Absolute Auto 2400 /uL (1500-7000); Neutrophils Percent Auto 54.2 % (50-75); Platelet Count 187 X10^3/uL (150-400); Red Blood Cell Count 4.86 X10^6/uL (4.5-5.9); Red Cell Distribution Width 13.1 % (11.6-14.8); White Blood Cell Count 4.4 X10^3/uL (4.5-11.0)
[2024-06-25 09:00] LABS: Alanine Aminotransferase 59 IU/L (<50); Albumin 4.7 g/dL (3.5-5.0); Alkaline Phosphatase 60 U/L (38-126); Aspartate Aminotransferase 47 IU/L (17-59); BUN Creatinine Ratio 16.4 (6-22); Bilirubin Total 1.5 mg/dL (0.2-1.3); Blood Urea Nitrogen 20 mg/dL (9-20); Calcium 9.6 mg/dL (8.4-10.2); Carbon Dioxide 29 mmol/L (22-32); Chloride 101 mmol/L (98-107); Cholesterol 172 mg/dL (140-199); Estimated Glomerular Filt Rate > 60 mL/min (>60); Globulin 2.4 g/dL (1.7-4.1); Glucose 117 mg/dL (80-110); HDL Cholesterol 42 mg/dL (40-60); HEMOLYSIS < 15 (0-50); LDL Cholesterol Calculated 93 mg/dL (<100); Potassium 4.8 mmol/L (3.4-5.1); Sodium 138 mmol/L (137-145); Total Protein 7.1 g/dL (6.3-8.2); Triglycerides 186 mg/dL (35-150)
== END ==
LOC: LAB 08:02
PROVIDERS: PCP Family Medicine; Referring Provider Psychiatry & Neurology Neurology; Visit Provider Psychiatry & Neurology Neurology
DX: G35 Multiple sclerosis (principal); E78.5 Hyperlipidemia, unspecified; Z51.81 Encounter for therapeutic drug level monitoring
CPT/HCPCS: 36415; 80053; 80061; 85025

== ENCOUNTER → 2024-07-27 15:32 | Outpatient (CLI) | payer MEDICARE, OTHER, SELFPAY ==
--- NOTE | 2024-07-27 15:39 | DI.MRI.S_ITS ---
PROCEDURE: MR LUMBAR SPINE WO CON INDICATIONS: LUMBAR RADICULOPATHY TECHNIQUE: Noncontrast sagittal T1 spin echo and T2 fast echo, sagittal STIR, and T2 fast spin echo through the lumbar spine. In cases with scoliosis, additional coronal T2 fast spin echo may be performed. COMPARISON: [facility], MR, MR LUMBAR SPINE WO CON, 05/20/2022, 17:40. FINDINGS: Image quality: Excellent. Alignment and Curvature: There is normal bony alignment. Bone Marrow: Stable appearance of extensive fatty marrow replacement of the L4, L5 vertebral bodies and the sacrum. No new suspicious focal lesion seen. There is mild Modic type 1 reactive endplate change at L2-L3. Spinal Cord: Conus medullaris terminates at the L1 level. Visualized cord demonstrates normal signal and size. Paraspinous Soft Tissues: No paravertebral masses. T12-L1: Normal appearance. L1-L2: Stable appearance of small posterior central and left paracentral disc extrusion, without significant spinal stenosis. L2-L3: Stable disc bulge with mild left foraminal narrowing, no central spinal stenosis. L3-L4: Stable appearance of disc bulge as well as some bilateral ligamentum flavum thickening and facet arthropathy. There is mild to moderate central canal stenosis as well as mild bilateral lateral recess and foraminal stenosis. L4-L5: Stable appearance of disc bulge with mild bilateral ligamentum flavum thickening. There is stable moderate central stenosis with mild bilateral foraminal narrowing, more on the left. A left lateral annular fissure again seen. L5-S1: Stable bilateral facet arthropathy and mild ligamentum flavum thickening, with mild left foraminal narrowing. IMPRESSION: 1. Essentially stable appearance of multilevel degenerative changes, most prominent at L4-L5. 2. No new disc extrusion or significant central stenosis seen. No acute focal osseous lesions. Dictated by: Rufino Byrd M.D. on 07/28/2024 at 13:52 Approved by: Rufino Byrd M.D. on 07/28/2024 at 14:03
== END ==
LOC: MRI 15:36
PROVIDERS: PCP Family Medicine; Referring Provider Orthopaedic Surgery Orthopaedic Surgery of the Spine; Visit Provider Orthopaedic Surgery Orthopaedic Surgery of the Spine
DX: M51.16 Intervertebral disc disorders with radiculopathy, lumbar region (principal); M47.26 Other spondylosis with radiculopathy, lumbar region; M48.061 Spinal stenosis, lumbar region without neurogenic claudication
CPT/HCPCS: 72148

== ENCOUNTER → 2024-08-14 11:24 | Outpatient (CLI) | payer MEDICARE, OTHER, SELFPAY ==
[2024-08-14 12:53] LABS: Prostate Specific Antigen < 0.064 ng/mL (0.10-4.00)
== END ==
PROVIDERS: PCP Family Medicine; Referring Provider Internal Medicine Hematology & Oncology; Visit Provider Internal Medicine Hematology & Oncology
DX: C61 Malignant neoplasm of prostate (principal)
CPT/HCPCS: 36415; 84153

== ENCOUNTER → 2024-11-20 10:40 | Outpatient (CLI) | payer MEDICARE, OTHER, SELFPAY | PROVIDERS: PCP Family Medicine; Referring Provider Psychiatry & Neurology Neurology; Visit Provider Psychiatry & Neurology Neurology | DX: G35 Multiple sclerosis (principal); R20.2 Paresthesia of skin | CPT/HCPCS: 36415 ==

== ENCOUNTER → 2025-02-19 08:51 | Outpatient (CLI) | payer MEDICARE, OTHER, SELFPAY ==
[2025-02-19 11:02] LABS: Prostate Specific Antigen < 0.064 ng/mL (0.10-4.00)
== END ==
PROVIDERS: PCP Family Medicine; Referring Provider Family Medicine; Visit Provider Internal Medicine Hematology & Oncology
DX: C61 Malignant neoplasm of prostate (principal)
CPT/HCPCS: 36415; 84153